=== PATIENT | female | born 1950 | race Caucasian/White ===

== ENCOUNTER 2022-08-30 11:42 | Outpatient (CLI) | payer OTHER, SELFPAY ==
--- NOTE | 2022-08-30 11:57 | MM_ITS ---
WS: [id number] Bilateral screening 3D tomosynthesis digital mammogram, 08/30/2022 Clinical Data: SCREENING Comparison: 05/10/2018, 06/19/2016, 05/19/2012, 08/01/2010, 02/17/2007, 02/25/2005. Findings: The breast parenchymal pattern shows heterogeneous tissue. No spiculated masses or clustered calcific ations are seen. There are no secondary signs of carcinoma. There are lymph nodes in both axilla. Imp ression: 1. Negative bilateral mammogram unchanged. 2. Recommend annual screening mammograms. MM/[place] [id number] BIRADS: 1-Negative FOLLOW UP: 1 Year Follow-up The CAD cylinder checker was used.
== END 2022-08-30 11:43 | disposition home or self-care (01) ==
LOC: RAD 11:49
PROVIDERS: PCP Nurse Practitioner Family; Visit Provider Nurse Practitioner Family
DX: Z12.31 Encounter for screening mammogram for malignant neoplasm of breast (principal)
CPT/HCPCS: 77063; 77067

== ENCOUNTER 2023-08-01 01:47 | Emergency (ER) | payer OTHER, SELFPAY ==
[2023-08-01] VITALS (8 sets, daily range): BP systolic 99–130; BP diastolic 56–71; PULSE 54–78; RESP 15–28; O2SAT 93–95; BMI 25.8
--- NOTE | 2023-08-01 01:55 | ECG_ITS ---
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 Measurements Intervals [place] Rate: 57 P: 0 CT: 0 QRS: 50 QRSD: 78 T: 35 QT: 413 QTc: 404 Interpretive Statements ATRIAL FIBRILLATION WITH SLOW VENTRICULAR RESPONSE SEPTAL MYOCARDIAL INFARCTION , OF INDETERMINATE AGE [40+ ms Q WAVE IN V1/V2] No previous ECG available for comparison Electronically Signed On 08-01-2023 16:59:16 CDT by Berna Phelps M.D. [id number]
--- NOTE | 2023-08-01 02:05 | XRR_ITS ---
PROCEDURE INFORMATION: Exam: XR Chest Exam date and time: 08/01/2023 2:30 AM Age: 73 years old Clinical indication: Other: Afib; Additional info: Cardiac arrthymia TECHNIQUE: Imaging protocol: Radiologic exam of the chest. Views: 1 view. COMPARISON: No relevant prior studies available. FINDINGS: Lungs: Unremarkable. No consolidation. Pleural spaces: Unremarkable. No pleural effusion. No pneumothorax. Heart/Mediastinum: Unremarkable. No cardiomegaly. Bones/joints: Unremarkable. XR/XR chest 1V portable [id number] IMPRESSION: No acute findings.
[2023-08-01 02:28] LABS: Basophils % 0.3 %; Eosinophils # 0.1 10^3/uL (0.0-0.8); Eosinophils % 1.2 %; Hematocrit 41.9 % (36-47); Lymphocytes # 1.5 10^3/uL (0.8-4.8); Lymphocytes % 24.3 %; Mean Corpuscular HGB Conc 33.7 g/dL (30-55); Mean Corpuscular Hemoglobin 32.8 pg (27-33); Mean Corpuscular Volume 97.4 fl (85-98); Mean Platelet Volume 10.1 fL (7.4-10.4); Monocytes # 0.3 10^3/uL (0.2-0.9); Monocytes % 5.4 %; Neutrophils # 4.09 10^3/uL (1.8-7.7); Neutrophils % 68.5 %; Nucleated Red Blood Cells % 0 %; Platelet Count 155 10^3/cmm (157-399); Red Cell Distribution Width 11.6 % (12.1-15.1); White Blood Count 5.97 10^3/uL (3.29-11.43)
[2023-08-01 02:41] LABS: INR 0.94 (0.8-1.2)
[2023-08-01 02:53] LABS: Troponin(5th) Baseline 11 ng/L (0-10)
[2023-08-01 02:58] LABS: Alanine Aminotransferase 22 U/L (0-33); Alkaline Phosphatase 80 U/L (35-105); Blood Urea Nitrogen 21 mg/dL (8-23); Calcium 8.3 mg/dL (8.5-10.5); Carbon Dioxide 21 mmol/L (22-29); Chloride 107 mmol/L (98-107); Creatinine Clr Calc Pharmacy 64.8343; Globulin 2.6 g/dL (1.3-4.6); Glucose 203 mg/dL (65-115); Osmolality Calculated 299 mOsm/kg (285-295); Sodium 140 mmol/L (136-145); Total Bilirubin 0.3 mg/dL (0.15-1.2); Total Protein 6.6 g/dL (6.6-8.7)
[2023-08-01 02:59] LABS: Anion Gap 15.7 (5-19); Aspartate Amino Transferase 21 U/L (0-32); Potassium 3.7 mmol/L (3.5-5.1)
[2023-08-01 03:00] LABS: NT Pro B Type Natriuretic Pept 252 pg/mL (0-125)
[2023-08-01 03:25] LABS: Add Urine Microscopic? NO; Charge for UA Resulting for Rev
[2023-08-01 03:27] LABS: Bilirubin Urine Neg (Negative); Blood Urine Neg (Negative); Glucose Urine UA Norm (Normal); Ketones Urine 1+ (Negative); Leukocyte Esterase Urine Negative (Negative); Nitrate Urine Negative (Negative); Protein Urine Neg (Negative); Specific Gravity, Urine 1.015 (1.005-1.030); Urine Appearance Clear (CLEAR); Urine Color Light yellow (Yellow); Urobilinogen Urine Neg (Negative); pH Urine 5 (5-7)
--- NOTE | 2023-08-01 04:01 | ECG_ITS ---
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 Measurements Intervals [place] Rate: 64 P: 0 MI: 0 QRS: 10 QRSD: 77 T: 3 QT: 421 QTc: 437 Interpretive Statements ATRIAL FIBRILLATION SEPTAL MYOCARDIAL INFARCTION , OF INDETERMINATE AGE [40+ ms Q WAVE IN V1/V2] No previous ECG available for comparison Electronically Signed On 08-01-2023 17:01:56 CDT by Berna Phelps M.D. [id number]
--- NOTE | 2023-08-01 04:32 | ED_ITS ---
Documented by User: Rafa Sorensen MD 08/01/23 04:40 HPI - Arrhythmia/Palpitations 2 General: Chief Complaint: Arrhythmia/Palpitations Stated Complaint: Afib Time Seen by Provider: 08/01/23 02:05 History of Present Illness: 73-year-old female presents emergency de partment via EMS personnel with complaints of feeling like her heart was racing which woke her from sleep. She felt like she could not catch her breath at that time and states that she attempted to get out of the bed and felt like she was excessively weak. She states she became concerned and called the ambulance. She states that she does not have a history of atrial fibrillation but was told by the paramedics that her cardiac rhythm was in atrial fibrillation and was going very fast above 145. Patient states she does have a history of mitral valve prolapse. She denies fevers chills or night sweats. She denies dizziness or vomiting. She does endorse nausea at the time of her chest pressure. She stated her chest pressure was a 3 out of 10 and seem to worsen when she attempted to exert herself and get out of bed. EMS personnel initially gave the patient 18 mg of Cardizem which decreased her heart rate into the 60s from 145 and significantly lowered her blood pressure to 73/49. EMS personnel then provided her a liter of normal saline and 4 mg of Zofran and she was placed on 2 L nasal cannula supplemental oxygen for supportive care. Associated symptoms: Reports nausea Review of Systems 2 General: Reports: 10 or more systems reviewed and unremarkable except in HPI and below Card: Reports: chest pain, palpitations and irregular heart rhythm Resp: Reports: dyspnea GI: Reports: nausea Physical Exam 2 Narrative: EXAM NARRATIVE: Constitutional: the patient appears well nourished and of normal development. Vital signs as documented. No acute distress at present. Alert and oriented-to person, place, time and situation. Head, eyes, ears, nose, mouth, throat: Normocephalic, atraumatic. Pupils-equal, round, reactive to light. No scleral icterus. Normal-appearing external ears. Normal appearing nasal turbinates, no drainage. No obvious oral lesions, posterior oropharynx without erythema or exudates. Neck: Supple, trachea is midline, no lymphadenopathy, no jugular venous distension, thyromegaly, or carotid bruits. Carotid upstrokes are brisk bilaterally. Lungs: clear to auscultation to all lung jackson. Symmetrical rise and fall of chest, no obvious signs of increased work of breathing at present. Cardiac: Irregularly irregular cardiac rhythm consistent with atrial fibrillation., positive S1, S2. No murmurs, rubs or gallops that I can appreciate Abdomen: Soft, non-tender to palpation, normal active bowel sounds to all quadrants. No palpable masses, no organomegaly and abdominal bruits. Extremities: 2+ pulses in the upper extremities that are equal bilaterally, 2+ pulses in the lower extremities that are equal bilaterally. Non-edematous. Moves all extremities well, sensation to all extremities are noted. Skin: Warm, dry, intact. Course 2 Vital Signs: Vital signs: Vital Signs Pulse Rate 60 08/01/23 05:17 Respiratory Rate 15 08/01/23 03:39 Blood Pressure 130/66 08/01/23 05:17 Pulse Oximetry 93 08/01/23 05:17 Oxygen Delivery Me thod Nasal Cannula 08/01/23 04:13 Oxygen Flow Rate 2 08/01/23 01:48 MDM - Arrhythmia/Palpitations Medical Decision Making Physical exam completed and documented, I will obtain serial cardiac enzymes, serial twelve-lead EKGs, chest x-ray, CBC, CMP, urinalysis, B-type natriuretic peptide, PT/PTT/INR, and a chest x-ray. I have reviewed previous and pertinent medical records for assist in obtaining beneficial medical information to improved the care and treatment of the patient. I have discussed the patient's case with the on-coming physician <Dr. Jose> and they have assumed care of the patient. We have discussed the current lab/radiographic results that have been resulted and the pending tests. Medical Records I reviewed the patient's medical records. Lab Data I reviewed the patient's lab results. 08/01/23 02:19 08/01/23 02:19 Radiology Impressions Chest X-Ray 08/01/23 02:05 IMPRESSION: No acute findings. Laboratory Results WBC 5.97 10^3/uL (3.29-11.43) 08/01/23 02:19 RBC 4.30 10^6/uL (3.85-5.65) 08/01/23 02:19 Hgb 14.10 g/dL (11.27-16.99) 08/01/23 02:19 Hct 41.9 % (36-47) 08/01/23 02:19 MCV 97.4 fl (85-98) 08/01/23 02:19 MCH 32.8 pg (27-33) 08/01/23 02:19 MCHC 33.7 g/dL (30-55) 08/01/23 02:19 RDW 11.6 % (12.1-15.1) L 08/01/23 02:19 Plt Count 155 10^3/cmm (157-399) L 08/01/23 02:19 MPV 10.1 fL (7.4-10.4) 08/01/23 02:19 Neut % (Auto) 68.5 % 08/01/23 02:19 Lymph % (Auto) 24.3 % 08/01/23 02:19 [place] % (Auto) 5.4 % 08/01/23 02:19 Eos % (Auto) 1.2 % 08/01/23 02:19 Baso % (Auto) 0.3 % 08/01/23 02:19 Neut # (Auto) 4.09 10^3/uL (1.8-7.7) 08/01/23 02:19 Lymph # (Auto) 1.5 10^3/uL (0.8-4.8) 08/01/23 02:19 [place] # (Auto) 0.3 10^3/uL (0.2-0.9) 08/01/23 02:19 Eos # (Auto) 0.1 10^3/uL (0.0-0.8) 08/01/23 02:19 Baso # (Auto) 0.0 10^3/uL (0.0-0.1) 08/01/23 02:19 Nucleated RBC % (auto) 0 % 08/01/23 02:19 Nucleated RBCs # 0.0 /100WBC 08/01/23 02:19 PT 12.90 SECONDS (12.1-14.9) 08/01/23 02:19 INR 0.94 (0.8-1.2) 08/01/23 02:19 Sodium 140 mmol/L (136-145) 08/01/23 02:19 Potassium 3.7 mmol/L (3.5-5.1) 08/01/23 02:19 Chloride 107 mmol/L (98-107) 08/01/23 02:19 Carbon Dioxide 21 mmol/L (22-29) L 08/01/23 02:19 Anion Gap 15.7 (5-19) 08/01/23 02:19 BUN 21 mg/dL (8-23) 08/01/23 02:19 Creatinine 0.5 mg/dL (0.5-0.9) 08/01/23 02:19 GFR Calculation Not Reportable 08/01/23 02:19 Glucose 203 mg/dL (65-115) H 08/01/23 02:19 Calculated Osmolality 299 mOsm/kg (285-295) H 08/01/23 02:19 Calcium 8.3 mg/dL (8.5-10.5) L 08/01/23 02:19 Total Bilirubin 0.3 mg/dL (0.15-1.2) 08/01/23 02:19 AST 21 U/L (0-32) 08/01/23 02:19 ALT 22 U/L (0-33) 08/01/23 02:19 Alkaline Phosphatase 80 U/L (35-105) 08/01/23 02:19 Troponin T Baseline 11 ng/L (0-10) H 08/01/23 02:19 Troponin T 120 Minute 10.52 ng/L (0-10) H 08/01/23 04:15 Delta Troponin T -0.48 ABS# (0-10) L 08/01/23 04:15 NT-Pro-B Natriuret Pep 252 pg/mL (0-125) H 08/01/23 02:19 Total Protein 6.6 g/dL (6.6-8.7) 08/01/23 02:19 Albumin 4.0 g/dL (3.5-5.2) 08/01/23 02:19 Globulin 2.6 g/dL (1.3-4.6) 08/01/23 02:19 Urine Color Light yellow (Yellow) 08/01/23 02:27 Urine Appearance Clear (CLEAR) 08/01/23 02:27 Urine pH 5 (5-7) 08/01/23 02:27 Ur Specific [place] 1.015 (1.005-1.030) 08/01/23 02:27 Urine Protein Neg (Negative) 08/01/23 02:27 Urine Glucose (UA) Norm (Normal) 08/01/23 02:27 Urine Ketones 1+ (Negative) H 08/01/23 02:27 Urine Blood Neg (Negative) 08/01/23 02:27 Urine Nitrate Negative (Negative) 08/01/23 02:27 Urine Bilirubin Neg (Negative) 08/01/23 02:27 Urine Urobilinogen Neg mg/dL (Negative) 08/01/23 02:27 Ur Leukocyte Esterase Negative (Negative) 08/01/23 02:27 All radiology interpretation(s) finalized by discharge EKG Data EKG 1: Interpretation: Twelve-lead EKG obtained at 0 155 and reviewed at 0 155 demonstrates atrial fibrillation with a ventricular rate of 57 bpm, QRS duration 78, QT 413, QTc 4 7, there is no ST elevation or depression to demonstrate acute ischemia or infarction at present. Other EKG comments: Chest X-Ray 08/01/23 02:05 IMPRESSION: No acute findings. EKG 2: Interpretation: Twelve-lead EKG obtained at 0401 and reviewed at 0 437 demonstrates atrial fibrillation with a ventricular rate of 64 bpm, QRS duration 77, QT 421, QTc 431, there does appear to be approximately [address] depression in leads V4, V5. Other EKG comments: Chest X-Ray 08/01/23 02:05 IMPRESSION: No acute findings. Discharge Plan Discharge Patient Disposition: Home Clinical Impression: Atrial fibrillation with rapid ventricular response, Palpitations Condition: Stable Prescriptions: New Eliquis DVT-PE Treat 30D Start 5 mg (74 tabs) tablets,dose pack See Rx Instructions .ROUTE .COMPLEX Qty: 74 0RF Rx Instructions: orally per package directions Discharge Orders: Discharge ED (Routine); Ordered 08/01/23 Ordered By: Robin Jose Referrals: Lucita Lemons [Primary Care Provider] - 1 week Patient Instructions: Atrial Fibrillation Activity Restrictions/Additional Instructions: He had been diagnosed with new onset atrial fibrillation. This requires an anticoagulant. He will be started on Eliquis and referred to cardiology for further evaluation testing. If this worsens such as your heart rate increases or your blood pressure decreases or you have palpitations please feel free to return to the ER. Coding Level of Care Code ED Construction Rigger for Chg Fwd Documented by User: Robin Jose DO 08/01/23 05:34 HPI - Arrhythmia/Palpitations 2 General: Chief Complaint: Arrhythmia/Palpitations Stated Complaint: Afib Time Seen by Provider: 08/01/23 02:05 Course 2 Vital Signs: Vital signs: Vital Signs Pulse Rate 60 08/01/23 05:17 Respiratory Rate 15 08/01/23 03:39 Blood Pressure 130/66 08/01/23 05:17 Pulse Oximetry 93 08/01/23 05:17 Oxygen Delivery Me thod Nasal Cannula 08/01/23 04:13 Oxygen Flow Rate 2 08/01/23 01:48 MDM - Arrhythmia/Palpitations Medical Decision Making Physical exam completed and documented, I will obtain serial cardiac enzymes, serial twelve-lead EKGs, chest x-ray, CBC, CMP, urinalysis, B-type natriuretic peptide, PT/PTT/INR, and a chest x-ray. I have reviewed previous and pertinent medical records for assist in obtaining beneficial medical information to improved the care and treatment of the patient. I have discussed the patient's case with the on-coming physician <Dr. Jose> and they have assumed care of the patient. We have discussed the current lab/radiographic results that have been resulted and the pending tests. Lab tests were reviewed troponins were benign, patient will be placed on Eliquis, consultation with cardiology will be arranged, patient be discharged home. Lab Data 08/01/23 02:19 08/01/23 02:19 Radiology Impressions Chest X-Ray 08/01/23 02:05 IMPRESSION: No acute findings. Laboratory Results WBC 5.97 10^3/uL (3.29-11.43) 08/01/23 02:19 RBC 4.30 10^6/uL (3.85-5.65) 08/01/23 02:19 Hgb 14.10 g/dL (11.27-16.99) 08/01/23 02:19 Hct 41.9 % (36-47) 08/01/23 02:19 MCV 97.4 fl (85-98) 08/01/23 02:19 MCH 32.8 pg (27-33) 08/01/23 02:19 MCHC 33.7 g/dL (30-55) 08/01/23 02:19 RDW 11.6 % (12.1-15.1) L 08/01/23 02:19 Plt Count 155 10^3/cmm (157-399) L 08/01/23 02:19 MPV 10.1 fL (7.4-10.4) 08/01/23 02:19 Neut % (Auto) 68.5 % 08/01/23 02:19 Lymph % (Auto) 24.3 % 08/01/23 02:19 [place] % (Auto) 5.4 % 08/01/23 02:19 Eos % (Auto) 1.2 % 08/01/23 02:19 Baso % (Auto) 0.3 % 08/01/23 02:19 Neut # (Auto) 4.09 10^3/uL (1.8-7.7) 08/01/23 02:19 Lymph # (Auto) 1.5 10^3/uL (0.8-4.8) 08/01/23 02:19 [place] # (Auto) 0.3 10^3/uL (0.2-0.9) 08/01/23 02:19 Eos # (Auto) 0.1 10^3/uL (0.0-0.8) 08/01/23 02:19 Baso # (Auto) 0.0 10^3/uL (0.0-0.1) 08/01/23 02:19 Nucleated RBC % (auto) 0 % 08/01/23 02:19 Nucleated RBCs # 0.0 /100WBC 08/01/23 02:19 PT 12.90 SECONDS (12.1-14.9) 08/01/23 02:19 INR 0.94 (0.8-1.2) 08/01/23 02:19 Sodium 140 mmol/L (136-145) 08/01/23 02:19 Potassium 3.7 mmol/L (3.5-5.1) 08/01/23 02:19 Chloride 107 mmol/L (98-107) 08/01/23 02:19 Carbon Dioxide 21 mmol/L (22-29) L 08/01/23 02:19 Anion Gap 15.7 (5-19) 08/01/23 02:19 BUN 21 mg/dL (8-23) 08/01/23 02:19 Creatinine 0.5 mg/dL (0.5-0.9) 08/01/23 02:19 GFR Calculation Not Reportable 08/01/23 02:19 Glucose 203 mg/dL (65-115) H 08/01/23 02:19 Calculated Osmolality 299 mOsm/kg (285-295) H 08/01/23 02:19 Calcium 8.3 mg/dL (8.5-10.5) L 08/01/23 02:19 Total Bilirubin 0.3 mg/dL (0.15-1.2) 08/01/23 02:19 AST 21 U/L (0-32) 08/01/23 02:19 ALT 22 U/L (0-33) 08/01/23 02:19 Alkaline Phosphatase 80 U/L (35-105) 08/01/23 02:19 Troponin T Baseline 11 ng/L (0-10) H 08/01/23 02:19 Troponin T 120 Minute 10.52 ng/L (0-10) H 08/01/23 04:15 Delta Troponin T -0.48 ABS# (0-10) L 08/01/23 04:15 NT-Pro-B Natriuret Pep 252 pg/mL (0-125) H 08/01/23 02:19 Total Protein 6.6 g/dL (6.6-8.7) 08/01/23 02:19 Albumin 4.0 g/dL (3.5-5.2) 08/01/23 02:19 Globulin 2.6 g/dL (1.3-4.6) 08/01/23 02:19 Urine Color Light yellow (Yellow) 08/01/23 02:27 Urine Appearance Clear (CLEAR) 08/01/23 02:27 Urine pH 5 (5-7) 08/01/23 02:27 Ur Specific [place] 1.015 (1.005-1.030) 08/01/23 02:27 Urine Protein Neg (Negative) 08/01/23 02:27 Urine Glucose (UA) Norm (Normal) 08/01/23 02:27 Urine Ketones 1+ (Negative) H 08/01/23 02:27 Urine Blood Neg (Negative) 08/01/23 02:27 Urine Nitrate Negative (Negative) 08/01/23 02:27 Urine Bilirubin Neg (Negative) 08/01/23 02:27 Urine Urobilinogen Neg mg/dL (Negative) 08/01/23 02:27 Ur Leukocyte Esterase Negative (Negative) 08/01/23 02:27 EKG Data EKG 1: Other EKG comments: Chest X-Ray 08/01/23 02:05 IMPRESSION: No acute findings. EKG 2: Other EKG comments: Chest X-Ray 08/01/23 02:05 IMPRESSION: No acute findings. Discharge Plan Discharge Patient Disposition: Home Clinical Impression: Atrial fibrillation with rapid ventricular response, Palpitations Condition: Stable Prescriptions: New Eliquis DVT-PE Treat 30D Start 5 mg (74 tabs) tablets,dose pack See Rx Instructions .ROUTE .COMPLEX Qty: 74 0RF Rx Instructions: orally per package directions Discharge Orders: Discharge ED (Routine); Ordered 08/01/23 Ordered By: Robin Jose Referrals: Lucita Lemons [Primary Care Provider] - 1 week Patient Instructions: Atrial Fibrillation Activity Restrictions/Additional Instructions: He had been diagnosed with new onset atrial fibrillation. This requires an anticoagulant. He will be started on Eliquis and referred to cardiology for further evaluation testing. If this worsens such as your heart rate increases or your blood pressure decreases or you have palpitations please feel free to return to the ER. Coding Level of Care Code ED Construction Rigger for Erica Robert
[2023-08-01 04:38] LABS: Troponin 5 2HR 10.52 ng/L (0-10)
[2023-08-01 04:40] LABS: Troponin 5 2HR Delta -0.48 ABS# (0-10)
--- NOTE | 2023-08-04 08:39 | DCPLANNER ---
Message sent to cardiology for follow up
== END 2023-08-01 05:35 | disposition home or self-care (01) ==
PROVIDERS: Emergency Provider Internal Medicine; PCP Nurse Practitioner Family
DX: I48.20 Chronic atrial fibrillation, unspecified (principal); R00.2 Palpitations
CPT/HCPCS: 36415; 71045; 80053; 81003; 83880; 84484; 85025; 85610; 93005; 99285

== ENCOUNTER 2023-11-27 14:07 | Outpatient (CLI) | payer OTHER, SELFPAY ==
--- NOTE | 2023-11-27 14:15 | CT_ITS ---
WS: [id number] CT chest wo con [id number] HISTORY: multiples lung nodules TECHNIQUE: Axial imaging performed through the thorax. Coronal and sagittal reformats are submitted. All CT scans at [facility] use at least one of these dose optimization techniques: automated exposure control; mA and/or kV adjustment per patient size (includes targeted exams where dose is mat ched to clinical indication); or iterative reconstruction. CONTRAST: None DLP: 255.82 mGy.cm COMPARISON: Chest radiograph 08/01/2023 Lungs and central airway: Mild pulmonary hyperexpansion. There is a single cyst or cavitary nodule in the superior segment RIGHT lower lobe. Entire cavitary lesion measures 14 x 13 mm. There is asymmetr ic wall thickening and slight adjacent groundglass attenuation. The wall thickening is along the supe rior and lateral portion of the nodule measuring 3 x 12 mm. There are a few additional scattered very tiny micronodules. No mass. Pleura: Normal. No pleural effusion. Heart and pericardium: Moderate cardiomegaly. Mediastinum and rick: The lack of IV contrast limits evaluation of lymphadenopathy in the chest. Ther e are numerous anterior mediastinal lymph nodes, AP and paratracheal lymph nodes. Some of these conta in calcifications suggesting they're probably benign. The largest lymph nodes measure up to 12 mm. Perry spect subcarinal lymph node. Vessels: Mildly ectatic aorta. Nonaneurysmal aorta. Pulmonary artery mildly prominent to 3.2 cm. Chest wall and lower neck: No soft tissue masses. Upper abdomen: Subtle low-attenuation, 9 mm lesion in the RIGHT lobe of the liver. There are a few sc attered granulomatous. Normal size spleen. Osseous structures: L1 hemangioma. CT/CT chest wo con [id number] IMPRESSION: 1. Cavitary lesion with asymmetric wall thickening superior segment RIGHT lowe r lobe. Cavitary lesion in its entirety measures 14 x 13 mm. The focal asymmetr ic wall thickening measures 3 x 12 mm. Recommend 3-month chest CT follow-up wit h IV contrast. 2. Enlarged, indeterminate mediastinal and hilar lymph nodes. Some of these ly mph nodes contain calcifications suggesting benign from prior granulomatous dis ease. These would be better evaluated on the enhanced chest CT. PET/CT may be o f benefit to evaluate for malignancy. Recommend 3-month chest CT follow-up with IV contrast. 3. Focal 9 mm lesion in the RIGHT lobe of the liver cannot be further evaluate d by noncontrast CT. Consider follow-up ultrasound of the RIGHT upper quadrant. PET/CT may be of benefit also.
== END 2023-11-27 14:08 | disposition home or self-care (01) ==
LOC: RAD 14:09
PROVIDERS: PCP Nurse Practitioner Family; Visit Provider Internal Medicine Critical Care Medicine
DX: R91.8 Other nonspecific abnormal finding of lung field (principal); R06.09 Other forms of dyspnea; F17.211 Nicotine dependence, cigarettes, in remission; K76.9 Liver disease, unspecified
CPT/HCPCS: 71250

== ENCOUNTER 2025-02-19 08:39 | Emergency (ER) | payer OTHER, SELFPAY ==
--- OUTSIDE RECORDS SUMMARY | 2025-02-19 08:47 | XMS_ITS | Encounter Summary ---
Author Organization [facility] Address [address] 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
--- OUTSIDE RECORDS SUMMARY | 2025-02-19 08:47 | XMS_ITS | Encounter Summary ---
Author Organization [facility] Address [address] [place] [address] Care Team Providers Care Automotive Refinisher Name Role Phone Robert Buitrago MD Primary Care Provider [phone] Encounter Details Date Type Department Care Team (Latest Contact Info) Description 02/27/2007 Outpatient Historical [facility] [address] [id number] Georgia Betts MD NO ADDRESS ON FILE Other Screening Mammogram (Primary Dx) Social History Tobacco Use Types Packs/Day Years Used Date Smoking Tobacco: Never Assessed Comments Unknown Sex and Gender Information Value Date Recorded Sex Assigned at Not on file 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 Gender Identity Not on file Sexual Orientation Not on file documented as of this encounter Plan of Treatment Not on file documented as of this encounter Visit Diagnoses Diagnosis Other screening mammogram- Primary documented in this encounter Additional Health Concerns Infection Onset Date Last Indicated Resolved Time COVID-19 03/28/2020 03/28/2020 04/17/2020 8:09 PM COMMODITY LOAN CLERK documented as of this encounter Care Teams Automotive Refinisher Relationship Specialty Start Date End Date Robert Buitrago MD [address] [place] [address] PCP - General Family Practice 03/14/20 documented as of this encounter
--- OUTSIDE RECORDS SUMMARY | 2025-02-19 08:47 | XMS_ITS | Clinical Summary ---
Author Organization [facility] Address [address] [place] [address] Care Team Providers Care Seed Cleaning Machine Operator Name Role Phone Robert Buitrago MD Primary Care Provider [phone] [phone] Allergies Active Allergy Reactions Criticality Noted Date Comments Apixaban Rash Low 08/22/2023 Atorvastatin Muscle Pain Low 01/01/2022 Fexofenadine Anaphylaxis High 10/26/2008 Gadolinium-Containing Contrast Media Rash Low 08/20/2017 Gluten Diarrhea,Nausea and Vomiting Low 11/17/2009 Iodinated Contrast Media Hives High 02/27/2024 Predisol 50 Nausea and Vomiting Low 09/23/2018 Simvastatin Muscle Pain Low 01/01/2022 Sulfa (Sulfonamide Antibiotics) Nausea and Vomiting Low 01/21/2008 Medications vits A,C,E/zinc/wally er (VISION-AMOS PRESERVE ORAL) Take by mouth. 09/23/2018 Active dabigatran etexilate (PRADAXA) 150 mg Capsule Take 150 mg by mouth 2 times daily. 09/29/2023 Active dilTIAZem (diltiazem sr) 240 mg Extended Release capsule Take 1 Capsule (240 mg) by mouth daily. 30 Capsule 11 07/05/2024 Active sertraline (ZOLOFT) 25 mg tabletIndicatio ns:Recurrent major depressive disorder, in partial remission Take 1 Tablet (25 mg) by mouth daily. 100 Tablet 3 12/24/2024 Active MAGNESIUM CITRATE ORAL Take 100 mg by mouth daily at bedtime. Active ezetimibe (ZETIA) 10 mg tabletIndicatio ns:Statin myopathy,Famili al hypercholestero lemia,Gluten intolerance,Fat ty liver disease, nonalcoholic,Ov erweight Take 1 tablet by mouth once daily 90 Tablet 2 01/05/2025 Active Active Problems Problem Noted Date Diagnosed Date S/P right hemicolectomy 12/26/2023 Allergic reaction to alpha-gal 12/26/2023 Paroxysmal atrial fibrillation 08/04/2023 Statin myopathy 01/01/2022 History of colon cancer 08/28/2021 Fatty liver disease, nonalcoholic 08/28/2021 Acute cystitis with hematuria 08/28/2021 Recurrent major depressive disorder, in partial remission 04/25/2020 Gluten intolerance 11/01/2014 Personal history of colonic polyps 01/07/2013 Mechanical complication due to breast prosthesis 09/18/2010 Hyperlipidemia 01/21/2008 Encounters Date Type Department Care Team Description 02/14/2025 Results Follow[facility] [address] [facility] [address] [place] [address] Irene Zheng MD COMPREHENSIVE METABOLIC PANEL, LIPID PANEL, QUEST TEST IN QUESTION (ACTION NEEDED) (NO MY CHART) 02/09/2025 8:00 AM CDT Procedure visit [facility] Medicine [place] [address] [facility] [address] [place] [address] Recurrent major depressive disorder, in partial remission; Paroxysmal atrial fibrillation (CMS/HCC); Statin myopathy; History of colon cancer; Familial hypercholesterolemia; Gluten intolerance; Fatty liver disease, nonalcoholic; Overweight; Chronic atrial fibrillation (CMS/HCC); Elevated liver enzymes 01/05/2025 Refill [facility] [address] [facility] [address] [place] [address] Irene Zheng MD Statin myopathy; Familial hypercholesterolemia; Gluten intolerance; Fatty liver disease, nonalcoholic; Overweight 01/03/2025 10:00 AM CDT Office Visit [place] [address] [facility] [address] [place] [address] Jennifer Quinones DO Statin myopathy (Primary Dx); Paroxysmal atrial fibrillation (CMS/HCC); Mixed hyperlipidemia 01/03/[address] [place] [address] Jennifer Quinones DO appointment needed 12/24/2024 9:00 AM CDT Office Visit [facility] Medicine [place] [address] [facility] [address] [place] [address] Robert Buitrago MD Wellness examination (Primary Dx); Recurrent major depressive disorder, in partial remission; Paroxysmal atrial fibrillation (CMS/HCC); Statin myopathy; History of colon cancer from Last 3 Months Immunizations Immunization Administration Dates Next Due (Action)(12 YR UP) COVID-19 VACCINE - EMERGENCY USE AUTHORIZATION, MRNA, [id number](PF) 30 MCG/0.3 ML IM SUSP 07/13/2020,06/20/2020 Dt Dtp Dtap Vaccine 10/25/1999 Family History Medical History Relation Name Comments Heart Disease Brother aortic dissect ion Lung Cancer Brother Stroke Brother Breast Cancer Maternal Grandmother Diabetes Mother Heart Disease Mother Hypertension Mother Colon Cancer Other SELF Heart Disease Son aortic dissect ion, CAD Relation Name Status Comments Brother Maternal Grandmother Mother Other SELF Alive Son Alive Social History Tobacco Use Types Packs/Day Years Used Date Smoking Tobacco: Former Cigarettes 1 35 0 12/10/1972 - 12/11/2007 Passive Smoke Exposure: Past Smokeless Tobacco: Never Tobacco Cessation:Counseling Given: No Comments:Quit smoking: quit 2 years ago Alcohol Use Standard Drinks/Week Comments No 0 (1 standard drink = 0.6 oz pur e alcohol) Feeling Safe Answer Date Recorded Are you in a relationship wi th someone who hurts you emotionally and/or physically? No 09/16/2022 Comments No Sex and Gender Information Value Date Recorded Sex Assigned at Not on file Legal Sex Female 1:40 PM PHOTOLITHOGRAPHIC STRIPPER Gender Identity Not on file Sexual Orientation Not on file Last Filed Vital Signs Vital Sign Reading Time Taken Comments Blood Pressure 108/68 01/03/2025 9:56 AM CDT Pulse 64 01/03/2025 9:56 AM CDT Temperature 36.9 C (98.4 F) 12/24/2024 9:27 AM CDT Respiratory Rate 18 12/24/2024 9:27 AM CDT Oxygen Saturation 99% 12/24/2024 9:27 AM CDT Inhaled Oxygen Concentration - - Weight 73.8 kg (162 lb 9.6 oz) 01/03/2025 9:56 A M CDT Height 167.6 cm (5' 6 ) 01/03/2025 9:56 AM CDT Body Mass Index 26.24 01/03/2025 9:56 AM CDT Plan of Treatment Upcoming Encounters Date Type Department Care Team (Late st Contact Info) Description 05/12/2025 9:20 AM PHOTOLITHOGRAPHIC STRIPPER Video Visit [facility] [address] [address] Irene Zheng MD [address] [address] 06/24/2025 9:20 AM CDT Office Visit [facility] Medicine [place] [address] [facility] [address] [place] [address] Gisele Mullen NP [address] [place] [address] 01/13/2026 10:20 AM CDT Office Visit [facility] [address] [facility] [address] [place] [address] Trina Winter, [facility] [address] [facility] [address] [place] [address] Health Maintenance Due Date Last Done Comments PNEUMOCOCCAL VACCINE 50+ YEA RS (1 of 2 - PCV) 1970 RSV VACCINE (60+ or ) (1 - Risk 50-74 years 1-dose series) 2001 ZOSTER VACCINE (1 of 2) 2001 DTAP/TDAP/TD VACCINES (2 - Tdap) 10/24/2009 10/25/19 00 OSTEOPOROSIS SCREENING 06/19/2021 06/19/2016, 2016 INFLUENZA VACCINE (#1) 2024 2, 08/28/2021, 03/14/2020 COVID-19 Vaccine (4 - 5-2 6 season) 2024 04/12/2021, 07/13/2020, 06/20/2020 BREAST CANCER SCREENING 01/12/2025 01/13/20 24, 08/30/2022, 07/08/2018, Additional history exists COLORECTAL SCREENING 09/17/2027 09/16/2022, 07/27/2018, 07/27/2018, Additional history exists Medical Devices Explanted Type Area Delivery Driver/Supervisor Device Identifier Shelf Expiration Date Model / Serial / Lot . Explanted:Qty: 1 on 12/14/2010 Mammary Left: Breast Description:[employer] [place] Gel Implant. Ruptured. Implanted by Dr. Puga He has been retired many years. Implant thrown away as it does not qualify under the guidelines per Courtney Jarvis . Explanted:Qty: 1 on 12/14/2010 Right: Breast Description:Right Capsule of Brest Post Augmentation. Not Ruptured. Implanted by Dr. Puga several years ago Implant thrown away per Courtney Jarvis as it is several years old and does qualify under the guidelines set forth. Procedures Procedure Name Priority Date/Time Associated Diagnosis Comments QUEST TEST IN QUESTION (ACTION NEEDED) (NO MY CHART) Routine 02/09/2025 8:09 AM CDT LIPID PANEL Routine 02/09/2025 8:09 AM CDT Statin myopathy Familial hypercholesterolemia Gluten intolerance Fatty liver disease, nonalcoholic Overweight Chronic atrial fibrillation (CMS/HCC) Elevated liver enzymes COMPREHENSIVE METABOLIC PANEL Routine 02/09/2025 8:09 AM CDT Statin myopathy Familial hypercholesterolemia Gluten intolerance Fatty liver disease, nonalcoholic Overweight Chronic atrial fibrillation (CMS/HCC) Elevated liver enzymes CBC WITH DIFFERENTIAL Routine 12/24/2024 12:00 AM CDT Recurrent major depressive disorder, in partial remission Paroxysmal atrial fibrillation (CMS/HCC) Statin myopathy History of colon cancer MAMMO 3D DIONNE SCREEN BILAT W OR WO CAD Routine 01/13/2024 1:53 PM CDT Breast cancer screening by mammogram ENDOSCOPY, COLON, DIAGNOSTIC 07/27/2018 12:00 AM CDT XR DEXA BONE DENSITY AXIAL 1 OR MORE SITES Routine 06/19/2016 12:00 AM PHOTOLITHOGRAPHIC STRIPPER Postmenopausal from Last 3 Months or Most Recently Relevant to Health Maintenance Results * QUEST TEST IN QUESTION (ACTION NEEDED) (NO MY CHART) (02/09/2025 8:09 AM CDT) REPORT/SPECIMEN COMMENT [facility] Comment: Whole blood, unspun or partially spun gel barrier tube was received more than 6 hours since collection. A false elevation of K, Phos and LD as well as a false decrease in glucose may occur due to prolonged contact with red cells. Test Performed at: [facility] [id number] [facility] [place] [address] Cara Macias MD 02/09/2025 8:09 AM CDT 02/10/2025 3:10 AM CDT us Irene Zheng MD CHEMISTRY ORDERABLES Final Resul t [facility] [phone] [facility] [address] [facility] [place] [address] * (ABNORMAL) LIPID PANEL (02/09/2025 8:09 AM CDT) CHOLESTEROL 213(H) <200 mg/dL [facility] HDL 37(L) > OR = 50 mg/dL [facility] TRIGLYCERIDE 123 <150 mg/dL [facility] LDL CALCULATED 151(H) mg/dL (calc) [facility] Comment: Reference range: <100 Desirable range <100 mg/dL for primary prevention; <70 mg/dL for patients with CHD or diabetic patients with > or = 2 CHD risk factors. LDL-C is now calculated using the Hayley calculation, which is a validated novel method providing better accuracy than the Friedewald equation in the estimation of LDL-C. Casey PURVIS et al. LORI. 2013;310(19): 1378-0808 (http://education.Admatic.[employer]/faq/CCZ536) CHOL/HDL RATIO 5.8(H) <5.0 (calc) [facility] NON-HDL CHOLESTEROL 176(H) <130 mg/dL (calc) [facility] Comment: For patients with diabetes plus 1 major ASCVD risk factor, treating to a non-HDL-C goal of <100 mg/dL (LDL-C of <70 mg/dL) is considered a therapeutic option. Test Performed at: [facility] [address] [place] [address] Cara Macias MD Blood 02/09/2025 8:09 AM CDT 02/10/2025 3:10 AM CDT us Irene Zheng MD CHEMISTRY ORDERABLES Final Resul t [facility] [phone] [facility] [address] * (ABNORMAL) COMPREHENSIVE METABOLIC PANEL (02/09/2025 8:09 AM CDT) GLUCOSE 59(L) 65 - 99 mg/dL [facility] Comment: Fasting reference interval BUN 18 7 - 25 mg/dL [facility] CREATININE 0.64 0.60 - 1.00 mg/dL [facility] GFR 93 > OR = 60 mL/min/1. 73m2 [facility] BUN/CREAT RATIO SEE NOTE: 6 - 22 (calc) [facility] Comment: Not Reported: BUN and Creatinine are within reference range. SODIUM 138 135 - 146 mmol/L [facility] POTASSIUM 4.6 3.5 - 5.3 mmol/L [facility] CHLORIDE 99 98 - 110 mmol/L [facility] CO2 26 20 - 32 mmol/L [facility] CALCIUM 9.8 8.6 - 10.4 mg/dL [facility] TOTAL PROTEIN 7.6 6.1 - 8.1 g/dL [facility] ALBUMIN 4.5 3.6 - 5.1 g/dL [facility] GLOBULIN 3.1 1.9 - 3.7 g/dL (calc) [facility] ALBUMIN/GLOBULIN RATIO 1.5 1.0 - 2.5 (calc) [facility] BILIRUBIN TOTAL 0.7 0.2 - 1.2 mg/dL [facility] ALKALINE PHOSPHATASE 87 37 - 153 U/L [facility] AST 62(H) 10 - 35 U/L [facility] ALT 65(H) 6 - 29 U/L [facility] Comment: Test Performed at: [facility] [address] [facility] [place] [address] Cara Macias MD Blood 02/09/2025 8:09 AM CDT 02/10/2025 3:10 AM CDT us Irene Zheng MD CHEMISTRY ORDERABLES Final Resul t [facility] [phone] [facility] [address] [place] [address] * (ABNORMAL) CBC WITH DIFFERENTIAL (12/24/2024 12:00 AM CDT) WBC 4.2 3.8 - 10.8 Thousand/u L [facility] RBC 4.68 3.80 - 5.10 Million/uL [facility] HEMOGLOBIN 15.4 11.7 - 15.5 g/dL [facility] HEMATOCRIT 46.5(H) 35.0 - 45.0 % [facility] MCV 99.4 80.0 - 100.0 fL [facility] MCH 32.9 27.0 - 33.0 pg [facility] MCHC 33.1 32.0 - 36.0 g/dL [facility] Comment: For adults, a slight decrease in the calculated MCHC value (in the range of 30 to 32 g/dL) is most likely not clinically significant; however, it should be interpreted with caution in correlation with other red cell parameters and the patient's clinical condition. RDW 11.8 11.0 - 15.0 % [facility] PLATELETS 201 140 - 400 Thousand/u L [facility] MPV 11.6 7.5 - 12.5 fL [facility] NEUTROPHIL ABSOLUTE 2,348 1,500 - 7,800 cells/uL [facility] LYMPHOCYTE ABSOLUTE 1,441 850 - 3,900 cells/uL [facility] MONOCYTE ABSOLUTE 273 200 - 950 cells/uL [facility] EOSINOPHIL ABSOLUTE 109 15 - 500 cells/uL [facility] BASOPHILS ABSOLUTE 29 0 - 200 cells/uL [facility] NEUTROPHIL 55.9 % [facility] LYMPHOCYTES 34.3 % [facility] MONOCYTE 6.5 % [facility] EOSINOPHILS 2.6 % [facility] BASOPHILS 0.7 % [facility] Comment: Test Performed at: [facility] [address] [place] [address] Cara Macias MD Blood 12/24/2024 02/10/2025 3:1 0 AM CDT Robert Buitrago MD HEMATOLOGY ORDERABLES Fin al Result [facility] [phone] [facility] [address] [place] [address] * MAMMO 3D DIONNE SCREEN BILAT W OR WO CAD (01/13/2024 1:53 PM CDT) Anatomical Region Laterality Modality Breast Bilateral Mammography, Dig ital Radiography Impressions 01/23/2024 6:39 AM CDT : No mammographic evidence of malignancy. BI-RADS ASSESSMENT: 1 - Negative RECOMMENDATION: Routine annual screening mammography. Narrative 01/23/2024 6:39 AM CDT EXAM: MAMMO SCRN BILAT 3D DIONNE W OR WO CAD INDICATION: Screening COMPARISON: 08/01/2010 MAMMO SCREEN IMPL BILAT W OR WO CAD BREAST COMPOSITION: The breasts are heterogeneously dense, which may obscure small masses. FINDINGS: RIGHT BREAST: There are no suspicious masses, calcifications, or areas of architectural distortion. LEFT BREAST: There are no suspicious masses, calcifications, or areas of architectural distortion. us Robert Buitrago MD MAMMO ORDERABLES Final Re sult * ENDOSCOPY, COLON, DIAGNOSTIC (07/27/2018 12:00 AM CDT) us Sgf Scanning GI PROCEDURE ORDERABLES Final Re sult * XR DEXA BONE DENSITY AXIAL 1 OR MORE SITES (06/19/2016 12:00 AM PHOTOLITHOGRAPHIC STRIPPER) Anatomical Region Laterality Modality Other Sneha Ellis AIRCRAFT TOOL MAKER DIAGNOSTIC IMAGING ORDERABL ES Final Result from Last 3 Months or Most Recently Relevant to Health [place] [id number] MEDICARE PART A HOSPITAL ONLY Advance Directives For more information, please contact: [phone] * Full Code (Latest Code Status on File) Date Activated Date Inactivated Comments 09/16/2022 10:51 AM 09/16/2022 1:26 PM Care Teams Seed Cleaning Machine Operator Relationship Specialty Start Date End Date Robert Buitrago MD [address] [address] PCP - General Family Practice 03/14/20
--- OUTSIDE RECORDS SUMMARY | 2025-02-19 08:47 | XMS_ITS | Encounter Summary ---
Author Organization [facility] Address [address] [place] [address] Care Team Providers Care Protein Purification Scientist Name Role Phone Robert Buitrago MD Primary Care Provider [phone] Encounter Details Date Type Department Care Team (Late st Contact Info) Description 03/12/[address] [facility] Breast Center [facility] [address] [place] [address] Miriam Osborne MD [facility] [place], [place] [address] Social History Tobacco Use Types Packs/Day Years Used Date Smoking Tobacco: Never Assessed Comments Unknown Sex and Gender Information Value Date Recorded Sex Assigned at Not on file Legal Sex Female 3:10 AM SHRIMPING BOAT CAPTAIN Gender Identity Not on file Sexual Orientation Not on file documented as of this encounter Plan of Treatment Not on file documented as of this encounter Visit Diagnoses Not on filedocumented in this encounter Additional Health Concerns Infection Onset Date Last Indicated Resolved Time COVID-19 03/28/2020 03/28/2020 04/17/2020 8:09 PM SHRIMPING BOAT CAPTAIN documented as of this encounter Care Teams Protein Purification Scientist Relationship Specialty Start Date End Date Robert Buitrago MD [address] [place] [address] PCP - General Family Practice 03/14/20 documented as of this encounter
--- OUTSIDE RECORDS SUMMARY | 2025-02-19 08:47 | XMS_ITS | Encounter Summary ---
Author Organization [facility] Address [address] [place] [address] Care Team Providers Care Wood Carving Lathe Operator Name Role Phone Robert Buitrago MD Primary Care Provider [phone] Encounter Details Date Type Department Care Team (Latest Contact Info) Description 05/07/2004 Outpatient Historical [facility] Medicine[address] [address] Ban Jean MD [address] [place] [address] LUMBAGO (Primary Dx); SPASM OF MUSCLE Social History Tobacco Use Types Packs/Day Years Used Date Smoking Tobacco: Never Assessed Comments Unknown Sex and Gender Information Value Date Recorded Sex Assigned at Not on file Legal Sex Female 3:10 AM REAL ESTATE SPECIALIST Gender Identity Not on file Sexual Orientation Not on file documented as of this encounter Plan of Treatment Not on file documented as of this encounter Visit Diagnoses Diagnosis Lumbago- Primary Spasm of muscle documented in this encounter Additional Health Concerns Infection Onset Date Last Indicated Resolved Time COVID-19 03/28/2020 03/28/2020 04/17/2020 8:09 PM REAL ESTATE SPECIALIST documented as of this encounter Care Teams Wood Carving Lathe Operator Relationship Specialty Start Date End Date Robert Buitrago MD [address] [place] [address] PCP - General Family Practice 03/14/20 documented as of this encounter
--- OUTSIDE RECORDS SUMMARY | 2025-02-19 08:47 | XMS_ITS | Encounter Summary ---
Author Organization [facility] Address [address] [place] [address] Care Team Providers Care Engineering Documentation Specialist Name Role Phone Robert Buitrago MD Primary Care Provider [phone] Encounter Details Date Type Department Care Team (Latest Contact Info) Description 02/19/1999 Outpatient Historical [facility] Medicine[address] [address] Anish Saldaña MD [address] [place] [address] Acute frontal sinusitis (Primary Dx); Acute bronchitis; Tobacco use disorder; Closed fracture of one or more phalanges of foot Social History Tobacco Use Types Packs/Day Years Used Date Smoking Tobacco: Never Assessed Comments Unknown Sex and Gender Information Value Date Recorded Sex Assigned at Not on file Legal Sex Female 3:10 AM MANAGER COMMODITIES Gender Identity Not on file Sexual Orientation Not on file documented as of this encounter Plan of Treatment Not on file documented as of this encounter Visit Diagnoses Diagnosis Acute frontal sinusitis- Primary Acute bronchitis Tobacco use disorder Closed fracture of one or more phalanges of foot documented in this encounter Additional Health Concerns Infection Onset Date Last Indicated Resolved Time COVID-19 03/28/2020 03/28/2020 04/17/2020 8:09 PM MANAGER COMMODITIES documented as of this encounter Care Teams Engineering Documentation Specialist Relationship Specialty Start Date End Date Robert [place] [address] PCP - General Family Practice 03/14/20 documented as of this encounter
--- OUTSIDE RECORDS SUMMARY | 2025-02-19 08:47 | XMS_ITS | Encounter Summary ---
Author Organization [facility] Address [address] [place] [address] Care Team Providers Care Spool Hauler Name Role Phone Robert Buitrago MD Primary Care Provider [phone] Encounter Details Date Type Department Care Team (Latest Contact Info) Description 03/12/2007 Outpatient [facility] Breast Center [facility] [address] [place] [address] Other Sign and Symptom in Breast (Primary Dx) Social History Tobacco Use Types Packs/Day Years Used Date Smoking Tobacco: Never Assessed Comments Unknown Sex and Gender Information Value Date Recorded Sex Assigned at Not on file Legal Sex Female 3:10 AM SCREW MACHINE SETTER Gender Identity Not on file Sexual Orientation Not on file documented as of this encounter Plan of Treatment Not on file documented as of this encounter Visit Diagnoses Diagnosis Other sign and symptom in breast- Primary documented in this encounter Additional Health Concerns Infection Onset Date Last Indicated Resolved Time COVID-19 03/28/2020 03/28/2020 04/17/2020 8:09 PM SCREW MACHINE SETTER documented as of this encounter Care Teams Spool Hauler Relationship Specialty Start Date End Date Robert Buitrago MD [address] [place] [address] PCP - General Family Practice 03/14/20 documented as of this encounter
--- OUTSIDE RECORDS SUMMARY | 2025-02-19 08:47 | XMS_ITS | Encounter Summary ---
Author Organization [facility] Address [address] [place] [address] Care Team Providers Care Price Changer Name Role Phone Robert Buitrago MD Primary Care Provider [phone] Encounter Details Date Type Department Care Team (Latest Contact Info) Description 01/29/2007 Outpatient Historical [facility] Family Medicine[address] [address] Sundar Osborne MD [address] [place] [address] Unspecified Hypothyroidism (Primary Dx) Social History Tobacco Use Types Packs/Day Years Used Date Smoking Tobacco: Never Assessed Comments Unknown Sex and Gender Information Value Date Recorded Sex Assigned at Not on file Legal Sex Female 3:10 AM ORDER TO DELIVERY SUPERVISOR Gender Identity Not on file Sexual Orientation Not on file documented as of this encounter Plan of Treatment Not on file documented as of this encounter Visit Diagnoses Diagnosis Unspecified hypothyroidism- Primary documented in this encounter Additional Health Concerns Infection Onset Date Last Indicated Resolved Time COVID-19 03/28/2020 03/28/2020 04/17/2020 8:09 PM ORDER TO DELIVERY SUPERVISOR documented as of this encounter Care Teams Price Changer Relationship Specialty Start Date End Date Robert Buitrago MD [address] [place] [address] PCP - General Family Practice 03/14/20 documented as of this encounter
--- OUTSIDE RECORDS SUMMARY | 2025-02-19 08:47 | XMS_ITS | Encounter Summary ---
Author Organization [facility] Address [address] [place] [address] Care Team Providers Care Timber Mill Worker Name Role Phone Robert Buitrago MD Primary Care Provider +1 -[phone] Encounter Details Date Type Department Care Team (Latest Contact Info) Description 02/09/1999 Outpatient Historical [facility] Medicine[address] [phone] Sundeep Slater MD [address] [address] Gynecologic examination (Primary Dx) Social History Tobacco Use Types Packs/Day Years Used Date Smoking Tobacco: Never Assessed Comments Unknown Sex and Gender Information Value Date Recorded Sex Assigned at Not on file Legal Sex Female 3:10 AM CONSULTING ANALYST Gender Identity Not on file Sexual Orientation Not on file documented as of this encounter Plan of Treatment Not on file documented as of this encounter Visit Diagnoses Diagnosis Gynecologic examination- Primary Gynecological examination documented in this encounter Additional Health Concerns Infection Onset Date Last Indicated Resolved Time COVID-19 03/28/2020 03/28/2020 04/17/2020 8:09 PM CONSULTING ANALYST documented as of this encounter Care Teams Timber Mill Worker Relationship Specialty Start Date End Date Robert Buitrago MD [address] [place] [address] PCP - General Family Practice 03/14/20 documented as of this encounter
--- OUTSIDE RECORDS SUMMARY | 2025-02-19 08:47 | XMS_ITS | Encounter Summary ---
Author Organization [facility] Address [address] [place] [address] Care Team Providers Care Route Sales Associate Name Role Phone Robert Buitrago MD Primary Care Provider +1 -[phone] Encounter Details Date Type Department Care Team (Latest Contact Info) Description 06/20/1999 Outpatient Historical [facility] Medicine[address] [phone] Sundeep Slater MD [address] [address] Esophageal reflux (Primary Dx) Social History Tobacco Use Types Packs/Day Years Used Date Smoking Tobacco: Never Assessed Comments Unknown Sex and Gender Information Value Date Recorded Sex Assigned at Not on file Legal Sex Female 3:10 AM ASPHALT SPREADER Gender Identity Not on file Sexual Orientation Not on file documented as of this encounter Plan of Treatment Not on file documented as of this encounter Visit Diagnoses Diagnosis Esophageal reflux- Primary documented in this encounter Additional Health Concerns Infection Onset Date Last Indicated Resolved Time COVID-19 03/28/2020 03/28/2020 04/17/2020 8:09 PM ASPHALT SPREADER documented as of this encounter Care Teams Route Sales Associate Relationship Specialty Start Date End Date Robert Buitrago MD [address] [place] [address] PCP - General Family Practice 12/1/20 documented as of this encounter
--- OUTSIDE RECORDS SUMMARY | 2025-02-19 08:47 | XMS_ITS | Encounter Summary ---
Author Organization [facility] Address [address] [place] [address] Care Team Providers Care Light Industrial Name Role Phone Robert Buitrago MD Primary Care Provider +1 -[phone] Encounter Details Date Type Department Care Team (Latest Contact Info) Description 07/01/2001 Outpatient [facility] [address] [place] [address] Yareli Boucher MD NO ADDRESS ON FILE OTITIS MEDIA NOS (Primary Dx) Social History Tobacco Use Types Packs/Day Years Used Date Smoking Tobacco: Never Assessed Comments Unknown Sex and Gender Information Value Date Recorded Sex Assigned at Not on file Legal Sex Female 3:10 AM TURBO GENERATOR OILER Gender Identity Not on file Sexual Orientation Not on file documented as of this encounter Plan of Treatment Not on file documented as of this encounter Visit Diagnoses Diagnosis Unspecified otitis media- Primary documented in this encounter Additional Health Concerns Infection Onset Date Last Indicated Resolved Time COVID-19 03/28/2020 03/28/2020 04/17/2020 8:09 PM TURBO GENERATOR OILER documented as of this encounter Care Teams Light Industrial Relationship Specialty Start Date End Date Robert Buitrago MD [address] [place] [address] PCP - General Family Practice 03/14/20 documented as of this encounter
--- OUTSIDE RECORDS SUMMARY | 2025-02-19 08:47 | XMS_ITS | Encounter Summary ---
Author Organization [facility] Address [address] [place] [address] Care Team Providers Care Motorcycle Assembler Name Role Phone Robert Buitrago MD Primary Care Provider +1 -[phone] Encounter Details Date Type Department Care Team (Late st Contact Info) Description 01/23/2004 Outpatient [facility] Family Medicine[address] [address] [facility], [address] [address] Social History Tobacco Use Types Packs/Day Years Used Date Smoking Tobacco: Never Assessed Comments Unknown Sex and Gender Information Value Date Recorded Sex Assigned at Not on file Legal Sex Female 3:10 AM BUTTER GRADER Gender Identity Not on file Sexual Orientation Not on file documented as of this encounter Plan of Treatment Not on file documented as of this encounter Visit Diagnoses Not on filedocumented in this encounter Additional Health Concerns Infection Onset Date Last Indicated Resolved Time COVID-19 03/28/2020 03/28/2020 04/17/2020 8:09 PM BUTTER GRADER documented as of this encounter Care Teams Motorcycle Assembler Relationship Specialty Start Date End Date Robert Buitrago MD [address] [place] [address] PCP - General Family Practice 03/14/20 documented as of this encounter
--- OUTSIDE RECORDS SUMMARY | 2025-02-19 08:47 | XMS_ITS | Encounter Summary ---
Author Organization [facility] Address [address] [place] [address] Care Team Providers Care Steel Box Toe Inserter Name Role Phone Robert Buitrago MD Primary Care Provider +1 -[phone] Encounter Details Date Type Department Care Team (Latest Contact Info) Description 01/27/2007 Outpatient Historical [facility] Family Medicine[address] [phone] Miriam Osborne MD [facility]2 [place], [place] [address] Unspecified Endocrine Disorder (Primary Dx); Routine Gynecological Examination Social History Tobacco Use Types Packs/Day Years Used Date Smoking Tobacco: Never Assessed Comments Unknown Sex and Gender Information Value Date Recorded Sex Assigned at Not on file Legal Sex Female 3:10 AM ALLIGATOR HUNTER Gender Identity Not on file Sexual Orientation Not on file documented as of this encounter Plan of Treatment Not on file documented as of this encounter Visit Diagnoses Diagnosis Unspecified endocrine disorder- Primary Routine gynecological examination documented in this encounter Additional Health Concerns Infection Onset Date Last Indicated Resolved Time COVID-19 03/28/2020 03/28/2020 04/17/2020 8:09 PM ALLIGATOR HUNTER documented as of this encounter Care Teams Steel Box Toe Inserter Relationship Specialty Start Date End Date Robert Buitrago MD [address] [place] [address] PCP - General Family Practice 03/14/20 documented as of this encounter
--- OUTSIDE RECORDS SUMMARY | 2025-02-19 08:47 | XMS_ITS | Encounter Summary ---
Author Organization [facility] Address [address] [place] [address] Care Team Providers Care Golf Ball Inspector Name Role Phone Robert Buitrago MD Primary Care Provider +1 [phone] Encounter Details Date Type Department Care Team (Latest Contact Info) Description 12/13/1999 Outpatient Historical [facility] Medicine[address] [phone] Sundeep Slater MD [address] [address] Gynecologic examination (Primary Dx); Screening for malignant neoplasm of the cervix Social History Tobacco Use Types Packs/Day Years Used Date Smoking Tobacco: Never Assessed Comments Unknown Sex and Gender Information Value Date Recorded Sex Assigned at Not on file Legal Sex Female 3:10 AM REGIONAL OFFICE COORDINATOR Gender Identity Not on file Sexual Orientation Not on file documented as of this encounter Plan of Treatment Not on file documented as of this encounter Visit Diagnoses Diagnosis Gynecologic examination- Primary Gynecological examination Screening for malignant neoplasm of the cervix documented in this encounter Additional Health Concerns Infection Onset Date Last Indicated Resolved Time COVID-19 03/28/2020 03/28/2020 04/17/2020 8:09 PM REGIONAL OFFICE COORDINATOR documented as of this encounter Care Teams Golf Ball Inspector Relationship Specialty Start Date End Date Robert [place] [address] PCP - General Family Practice 03/14/20 documented as of this encounter
--- OUTSIDE RECORDS SUMMARY | 2025-02-19 08:47 | XMS_ITS | Encounter Summary ---
Author Organization [facility] Address [address] [place] [address] Care Team Providers Care Court Manager Name Role Phone Robert Buitrago MD Primary Care Provider +1 -[phone] Encounter Details Date Type Department Care Team (Late st Contact Info) Description 06/01/2007 Outpatient Historical [facility] End[facility] [place] [address] [facility] [address] [place] [phone] Prasanth Jackson MD [address] [facility] [address] [place] [address] Social History Tobacco Use Types Packs/Day Years Used Date Smoking Tobacco: Never Assessed Comments Unknown Sex and Gender Information Value Date Recorded Sex Assigned at Not on file Legal Sex Female 3:10 AM E MERCHANT Gender Identity Not on file Sexual Orientation Not on file documented as of this encounter Plan of Treatment Not on file documented as of this encounter Visit Diagnoses Not on filedocumented in this encounter Additional Health Concerns Infection Onset Date Last Indicated Resolved Time COVID-19 03/28/2020 03/28/2020 04/17/2020 8:09 PM E MERCHANT documented as of this encounter Care Teams Court Manager Relationship Specialty Start Date End Date Robert Buitrago MD [address] [place] [address] PCP - General Family Practice 03/14/20 documented as of this encounter
--- OUTSIDE RECORDS SUMMARY | 2025-02-19 08:47 | XMS_ITS | Encounter Summary ---
Author Organization [facility] Address [address] [place] [address] Care Team Providers Care Document Processing Specialist Name Role Phone Robert Buitrago MD Primary Care Provider +1 -[phone] Encounter Details Date Type Department Care Team (Late st Contact Info) Description 01/27/2007 Outpatient Historical [facility] Family Medicine[address] [phone] Miriam Osborne MD [facility]2 [place], [place] [address] Social History Tobacco Use Types Packs/Day Years Used Date Smoking Tobacco: Never Assessed Comments Unknown Sex and Gender Information Value Date Recorded Sex Assigned at Not on file Legal Sex Female 3:10 AM MOBILE UI DESIGNER Gender Identity Not on file Sexual Orientation Not on file documented as of this encounter Plan of Treatment Not on file documented as of this encounter Visit Diagnoses Not on filedocumented in this encounter Additional Health Concerns Infection Onset Date Last Indicated Resolved Time COVID-19 03/28/2020 03/28/2020 04/17/2020 8:09 PM MOBILE UI DESIGNER documented as of this encounter Care Teams Document Processing Specialist Relationship Specialty Start Date End Date Robert Buitrago [place] [address] PCP - General Family Practice 03/14/20 documented as of this encounter
--- OUTSIDE RECORDS SUMMARY | 2025-02-19 08:47 | XMS_ITS | Encounter Summary ---
Author Organization [facility] Address [address] [place] [address] Care Team Providers Care Tool Setter Name Role Phone Robert Buitrago MD Primary Care Provider +1 -[phone] Encounter Details Date Type Department Care Team (Latest Contact Info) Description 10/25/1999 Outpatient Historical [facility] Medicine[address] [address] Anish Saldaña MD [address] [place] [address] Unspecified local infection of skin and subcutaneous tissue (Primary Dx) Social History Tobacco Use Types Packs/Day Years Used Date Smoking Tobacco: Never Assessed Comments Unknown Sex and Gender Information Value Date Recorded Sex Assigned at Not on file Legal Sex Female 3:10 AM SPEED OPERATOR Gender Identity Not on file Sexual Orientation Not on file documented as of this encounter Plan of Treatment Not on file documented as of this encounter Visit Diagnoses Diagnosis Unspecified local infection of skin and subcutaneous tissue- Primary documented in this encounter Additional Health Concerns Infection Onset Date Last Indicated Resolved Time COVID-19 03/28/2020 03/28/2020 04/17/2020 8:09 PM SPEED OPERATOR documented as of this encounter Care Teams Tool Setter Relationship Specialty Start Date End Date Robert Buitrago MD [address] [place] [address] PCP - General Family Practice 03/14/20 documented as of this encounter
--- OUTSIDE RECORDS SUMMARY | 2025-02-19 08:47 | XMS_ITS | Encounter Summary ---
Author Organization [facility] Address [address] [place] [address] Care Team Providers Care Polysomnographic Tech Name Role Phone Robert Buitrago MD Primary Care Provider +1 -[phone] Encounter Details Date Type Department Care Team (Late st Contact Info) Description 01/23/2005 Outpatient [facility] Family Medicine[address] [address] [facility] 76, [address] [address] Social History Tobacco Use Types Packs/Day Years Used Date Smoking Tobacco: Never Assessed Comments Unknown Sex and Gender Information Value Date Recorded Sex Assigned at Not on file Legal Sex Female 3:10 AM SNAKE CHARMER Gender Identity Not on file Sexual Orientation Not on file documented as of this encounter Plan of Treatment Not on file documented as of this encounter Visit Diagnoses Not on filedocumented in this encounter Additional Health Concerns Infection Onset Date Last Indicated Resolved Time COVID-19 03/28/2020 03/28/2020 04/17/2020 8:09 PM SNAKE CHARMER documented as of this encounter Care Teams Polysomnographic Tech Relationship Specialty Start Date End Date Robert Buitrago MD [address] [place] [address] PCP - General Family Practice 03/14/20 documented as of this encounter
--- OUTSIDE RECORDS SUMMARY | 2025-02-19 08:47 | XMS_ITS | Encounter Summary ---
Author Organization [facility] Address [address] Rodriguezn: Epic Prelude ADT [place] [address] Care Team Providers Care Kitchen And Counter Worker Name Role Phone Robert Buitrago MD Primary Care Provider +1 -[phone] Encounter Details Date Type Department Care Team (Late st Contact Info) Description 09/14/2007 Outpatient Historical Seth Anne DO NO ADDRESS ON FILE Social History Tobacco Use Types Packs/Day Years Used Date Smoking Tobacco: Never Assessed Comments Unknown Sex and Gender Information Value Date Recorded Sex Assigned at Not on file Legal Sex Female 3:10 AM ELECTRICAL DISCHARGE MACHINE OPERATOR Gender Identity Not on file Sexual Orientation Not on file documented as of this encounter Plan of Treatment Not on file documented as of this encounter Procedures Procedure Name Priority Date/Time Associated Diagnosis Comments PATHOLOGY Routine 09/14/2007 8:11 AM CDT documented in this encounter Results * PATHOLOGY (09/14/2007 8:11 AM CDT) PATHOLOGY/CYT OLOGY REPORT [facility] Pathology Dept [facility] [address] Patient: KAILEY LIRA Accn No: [id number] Collected: 09/14/2007 8:11:00 AM SURGICAL PATHOLOGY FINAL REPORT Diagnosis A. Rectum, 10 cm, biopsy - colorectal type mucosal tissue with extensive biopsy artifact. / B. Colon, 35 cm, biopsy - suggestive of hyperplastic polyp. / C. Colon, 145 cm, biopsy - suggestive of hyperplastic polyp, four fragments. Nathan Navarrete M.D. (Electronically signed by) Verified: 09/16/07 DD /ERIS Pathologist Comment A. The extensive biopsy artifact precludes definitive assessment. There is no evidence of malignancy in this biopsy. Clinical Information Polyp. Specimen Source ARectum, 10 CM BColon, 35 CM CColon, 145 CM Microscopic Description Microscopic examination was performed. Gross Description Part A. Submitted in a container of formalin labelled Cook, #1 rectal polyp at 10 cm is a grayish-white soft tissue fragment measuring 0.2 x 0.2 x 0.1 cm. The specimen is submitted entirely in A1. Part B. Submitted in a container of formalin labelled Cook, #2 colon polyp, 35 cm are two darden tissue fragments measuring up to 0.2 cm. The specimen is submitted entirely in B1. Part C. Submitted in a container of formalin labelled Cook, #3 colon polyp at 145 cm are four darden tissue fragments ranging in size from 0.2 to 0.3 cm. The specimen is submitted entirely in C1. DLS/CEP INTERFACE SYSTEM 09/14/2007 8:11 AM CDT Seth Anne DO PATHOLOGY/CYTOLOGY ORDERABLES Final Result INTERFACE SYSTEM Refer to clinic/hospital department documented in this encounter Visit Diagnoses Not on filedocumented in this encounter Additional Health Concerns Infection Onset Date Last Indicated Resolved Time COVID-19 03/28/2020 03/28/2020 04/17/2020 8:09 PM ELECTRICAL DISCHARGE MACHINE OPERATOR documented as of this encounter Care Teams Kitchen And Counter Worker Relationship Specialty Start Date End Date Robert Buitrago MD [address] [place] [address] PCP - General Family Practice 03/14/20 documented as of this encounter
--- OUTSIDE RECORDS SUMMARY | 2025-02-19 08:47 | XMS_ITS | Encounter Summary ---
Author Organization [facility] Address [address] [place] [address] Care Team Providers Care Poke In Name Role Phone Robert Buitrago MD Primary Care Provider +1 -[phone] Encounter Details Date Type Department Care Team (Latest Contact Info) Description 11/19/[address] [facility] [address] [place] [address] Sneha Ellis, DECORATIVE ENGRAVER APPRENTICE [address] [place] [address] HEADACHE (Primary Dx) Social History Tobacco Use Types Packs/Day Years Used Date Smoking Tobacco: Never Assessed Comments Unknown Sex and Gender Information Value Date Recorded Sex Assigned at Not on file Legal Sex Female 3:10 AM SEAFOOD TECHNOLOGY SPECIALIST Gender Identity Not on file Sexual Orientation Not on file documented as of this encounter Plan of Treatment Not on file documented as of this encounter Visit Diagnoses Diagnosis Headache(784.0)- Primary Headache documented in this encounter Additional Health Concerns Infection Onset Date Last Indicated Resolved Time COVID-19 03/28/2020 03/28/2020 04/17/2020 8:09 PM SEAFOOD TECHNOLOGY SPECIALIST documented as of this encounter Care Teams Poke In Relationship Specialty Start Date End Date Robert Buitrago MD [address] [place] [address] PCP - General Family Practice 03/14/20 documented as of this encounter
--- OUTSIDE RECORDS SUMMARY | 2025-02-19 08:47 | XMS_ITS | Encounter Summary ---
Author Organization [facility] Address [address] [place] [address] Care Team Providers Care Outboard Motorboat Rigger Name Role Phone Robert Buitrago MD Primary Care Provider +1 -[phone] Encounter Details Date Type Department Care Team (Latest Contact Info) Description 04/01/2001 Outpatient Historical [facility] [address] [place] [address] Yareli Boucher MD NO ADDRESS ON FILE ACUTE MAXILLARY SINUSITIS (Primary Dx) Social History Tobacco Use Types Packs/Day Years Used Date Smoking Tobacco: Never Assessed Comments Unknown Sex and Gender Information Value Date Recorded Sex Assigned at Not on file Legal Sex Female 3:10 AM COMMAND CENTER OFFICER Gender Identity Not on file Sexual Orientation Not on file documented as of this encounter Plan of Treatment Not on file documented as of this encounter Visit Diagnoses Diagnosis Acute maxillary sinusitis- Primary documented in this encounter Additional Health Concerns Infection Onset Date Last Indicated Resolved Time COVID-19 03/28/2020 03/28/2020 04/17/2020 8:09 PM COMMAND CENTER OFFICER documented as of this encounter Care Teams Outboard Motorboat Rigger Relationship Specialty Start Date End Date Robert Buitrago MD [address] [place] [address] PCP - General Family Practice 03/14/20 documented as of this encounter
--- OUTSIDE RECORDS SUMMARY | 2025-02-19 08:47 | XMS_ITS | Encounter Summary ---
Author Organization [facility] Address [address] [place] [address] Care Team Providers Care Photogrammetric Surveyor Name Role Phone Robert Buitrago MD Primary Care Provider +1 -[phone] Encounter Details Date Type Department Care Team (Latest Contact Info) Description 12/08/[address] [facility] [address] [phone] Georgia Betts MD NO ADDRESS ON FILE Other screening mammogram (Primary Dx) Social History Tobacco Use Types Packs/Day Years Used Date Smoking Tobacco: Never Assessed Comments Unknown Sex and Gender Information Value Date Recorded Sex Assigned at Not on file Legal Sex Female 3:10 AM DISTRICT GAUGER Gender Identity Not on file Sexual Orientation Not on file documented as of this encounter Plan of Treatment Not on file documented as of this encounter Visit Diagnoses Diagnosis Other screening mammogram- Primary documented in this encounter Additional Health Concerns Infection Onset Date Last Indicated Resolved Time COVID-19 03/28/2020 03/28/2020 04/17/2020 8:09 PM DISTRICT GAUGER documented as of this encounter Care Teams Photogrammetric Surveyor Relationship Specialty Start Date End Date Robert Buitrago MD [address] [place] [address] PCP - General Family Practice 03/14/20 documented as of this encounter
--- OUTSIDE RECORDS SUMMARY | 2025-02-19 08:47 | XMS_ITS | Encounter Summary ---
Author Organization [facility] Address [address] [place] [address] Care Team Providers Care Cnc Milling Machine Operator Name Role Phone Robert Buitrago MD Primary Care Provider +1 -[phone] Encounter Details Date Type Department Care Team (Late st Contact Info) Description 09/26/2009 Ancillary Orders [facility] [address] [place] [address] Sneha Ellis, SUPERVISOR WINDING DEPARTMENT [address] [place] [phone] Social History Tobacco Use Types Packs/Day Years Used Date Smoking Tobacco: Never Assessed Comments No Sex and Gender Information Value Date Recorded Sex Assigned at Not on file Legal Sex Female 3:10 AM POT FIRER Gender Identity Not on file Sexual Orientation Not on file documented as of this encounter Plan of Treatment Not on file documented as of this encounter Visit Diagnoses Not on filedocumented in this encounter Additional Health Concerns Infection Onset Date Last Indicated Resolved Time COVID-19 03/28/2020 03/28/2020 04/17/2020 8:09 PM POT FIRER documented as of this encounter Care Teams Cnc Milling Machine Operator Relationship Specialty Start Date End Date Robert Buitrago MD [address] [place] [address] PCP - General Family Practice 03/14/20 documented as of this encounter
--- OUTSIDE RECORDS SUMMARY | 2025-02-19 08:47 | XMS_ITS | Encounter Summary ---
Author Organization [facility] Address [address] [place] [address] Care Team Providers Care Home Designer Name Role Phone Robert Buitrago MD Primary Care Provider +1 [phone] Encounter Details Date Type Department Care Team (Late st Contact Info) Description 02/27/2007 Outpatient [facility] Breast Center [facility] [address] [place] [address] Miriam Osborne MD [facility] [place], [place] [id number] Social History Tobacco Use Types Packs/Day Years Used Date Smoking Tobacco: Never Assessed Comments Unknown Sex and Gender Information Value Date Recorded Sex Assigned at Not on file Legal Sex Female 3:10 AM STOGIE PACKER Gender Identity Not on file Sexual Orientation Not on file documented as of this encounter Plan of Treatment Not on file documented as of this encounter Visit Diagnoses Not on filedocumented in this encounter Additional Health Concerns Infection Onset Date Last Indicated Resolved Time COVID-19 03/28/2020 03/28/2020 04/17/2020 8:09 PM STOGIE PACKER documented as of this encounter Care Teams Home Designer Relationship Specialty Start Date End Date Robert Buitrago MD [address] [place] [address] PCP - General Family Practice 03/14/20 documented as of this encounter
--- OUTSIDE RECORDS SUMMARY | 2025-02-19 08:47 | XMS_ITS | Encounter Summary ---
Author Organization [facility] Address [address] [place] [address] Care Team Providers Care Electronics Parts Sales Representative Name Role Phone Robert Buitrago MD Primary Care Provider +1 [phone] Encounter Details Date Type Department Care Team (Latest Contact Info) Description 06/19/2001 Outpatient Historical [facility] [address] [place] [address] Yareli Boucher MD NO ADDRESS ON FILE OTITIS MEDIA NOS (Primary Dx) Social History Tobacco Use Types Packs/Day Years Used Date Smoking Tobacco: Never Assessed Comments Unknown Sex and Gender Information Value Date Recorded Sex Assigned at Not on file Legal Sex Female 3:10 AM CRISIS COUNSELOR Gender Identity Not on file Sexual Orientation Not on file documented as of this encounter Plan of Treatment Not on file documented as of this encounter Visit Diagnoses Diagnosis Unspecified otitis media- Primary documented in this encounter Additional Health Concerns Infection Onset Date Last Indicated Resolved Time COVID-19 03/28/2020 03/28/2020 04/17/2020 8:09 PM CRISIS COUNSELOR documented as of this encounter Care Teams Electronics Parts Sales Representative Relationship Specialty Start Date End Date Robert Buitrago MD [address] [place] [address] PCP - General Family Practice 03/14/20 documented as of this encounter
--- OUTSIDE RECORDS SUMMARY | 2025-02-19 08:47 | XMS_ITS | Encounter Summary ---
Author Organization [facility] Address [address] [address] Phone Care Team Providers Care Budget Report Clerk Name Role Phone Kathia Johnson MACHINERY MECHANIC Primary Care Provider Denisha martin Reason for Visit * Reason Comments Med Refill Encounter Details Date Type Department Care Team (Late st Contact Info) Description 02/13/2025 [facility] [address] [id number] Manuel Justin MD [address] [id number] Paroxysmal atrial fibrillation (CMS/HCC) Social History Tobacco Use Types Packs/Day Years Used Date Smoking Tobacco: Former Cigarettes 1970 Smokeless Tobacco: Never Alcohol Use Standard Drinks/Week Comments Not Currently 0 (1 standard drink = 0.6 oz pur e alcohol) AUDIT-C Answer Date Recorded Q1: How often do you have a drink containing alcohol? Never 09/29/2023 Q2: How many drinks containi ng alcohol do you have on a typical day when you are drinking? Patient does not drink Q3: How often do you have si x or more drinks on one occasion? Never 09/29/2023 PHQ-2 Answer Date Recorded Patient Health Questionnaire-2 Score 0 09/29/2023 [facility] - Mental Health Answer Date Recorde d Little interest or pleasure in doing things Not at all 09/29/2023 Feeling down, depressed, or hopeless Not at all 09/29/2023 Feeling of Stress Not on file 09/29/2023 Comments Unknown Sex and Gender Information Value Date Recorded Sex Assigned at Female 08/08/2023 5:12 PM CDT Legal Sex Female 10:45 AM CDT Gender Identity Female 08/08/2023 5:11 PM CDT Sexual Orientation Straight 08/08/2023 5: 12 PM CDT documented as of this encounter Plan of Treatment Not on file documented as of this encounter Visit Diagnoses Diagnosis Paroxysmal atrial fibrillation (CMS/HCC) Atrial fibrillation documented in this encounter Care Teams Budget Report Clerk Relationship Specialty Start Date End Date Kathia Johnson FNP [address] [place] [address] PCP - General Family Medicine 08/05/23 documented as of this encounter
--- OUTSIDE RECORDS SUMMARY | 2025-02-19 08:47 | XMS_ITS | Encounter Summary ---
Author Organization [facility] Address [address] [place] [address] Care Team Providers Care Evs Attendant Name Role Phone Robert Buitrago MD Primary Care Provider [phone] Encounter Details Date Type Department Care Team (Latest Contact Info) Description 08/25/1998 Outpatient Historical [facility] Medicine[address] [address] Sundeep Slater MD [address] [address] Pain in joint, forearm (Primary Dx); Symptomatic menopausal or female climacteric states Social History Tobacco Use Types Packs/Day Years Used Date Smoking Tobacco: Never Assessed Comments Unknown Sex and Gender Information Value Date Recorded Sex Assigned at Not on file Legal Sex Female 3:10 AM DOPE POURER Gender Identity Not on file Sexual Orientation Not on file documented as of this encounter Plan of Treatment Not on file documented as of this encounter Visit Diagnoses Diagnosis Pain in joint, forearm- Primary Symptomatic menopausal or female climacteric states documented in this encounter Additional Health Concerns Infection Onset Date Last Indicated Resolved Time COVID-19 03/28/2020 03/28/2020 04/17/2020 8:09 PM DOPE POURER documented as of this encounter Care Teams Evs Attendant Relationship Specialty Start Date End Date Robert Buitrago MD [address] [place] [phone] PCP - General Family Practice 03/14/20 documented as of this encounter
--- OUTSIDE RECORDS SUMMARY | 2025-02-19 08:47 | XMS_ITS | Encounter Summary ---
Author Organization [facility] Address [address] [place] [address] Care Team Providers Care Public Service Director Name Role Phone Robert Buitrago MD Primary Care Provider [phone] [phone] Encounter Details Date Type Department Care Team (Latest Contact Info) Description 05/29/1998 Outpatient Historical [facility] Medicine[address] [address] Anish Saldaña MD [address] [place] [address] Swelling, mass, or lump in head and neck (Primary Dx) Social History Tobacco Use Types Packs/Day Years Used Date Smoking Tobacco: Never Assessed Comments Unknown Sex and Gender Information Value Date Recorded Sex Assigned at Not on file Legal Sex Female 3:10 AM MUSEUM PREPARATOR Gender Identity Not on file Sexual Orientation Not on file documented as of this encounter Plan of Treatment Not on file documented as of this encounter Visit Diagnoses Diagnosis Swelling, mass, or lump in head and neck- Primary documented in this encounter Additional Health Concerns Infection Onset Date Last Indicated Resolved Time COVID-19 03/28/2020 03/28/2020 04/17/2020 8:09 PM MUSEUM PREPARATOR documented as of this encounter Care Teams Public Service Director Relationship Specialty Start Date End Date Robert Buitrago [place] [address] PCP - General Family Practice 03/14/20 documented as of this encounter
--- OUTSIDE RECORDS SUMMARY | 2025-02-19 08:47 | XMS_ITS | Encounter Summary ---
Author Organization [facility] Address [address] [place] [address] Care Team Providers Care Digital Measurement Advisor Name Role Phone Robert Buitrago MD Primary Care Provider [phone] [phone] Encounter Details Date Type Department Care Team (Latest Contact Info) Description 02/14/2025 Results Follow-Up [facility] Endocrinology [facility] [place] [address] [place] [address] Irene Zheng MD [address] [place] [address] COMPREHENSIVE METABOLIC PANEL, LIPID PANEL, QUEST TEST IN QUESTION (ACTION NEEDED) (NO MY CHART) Social History Tobacco Use Types Packs/Day Years Used Date Smoking Tobacco: Former Cigarettes 1 35 0 12/10/1972 - 12/11/2007 Passive Smoke Exposure: Past Smokeless Tobacco: Never Comments:Quit smoking: quit 2 years ago Alcohol Use Standard Drinks/Week Comments No 0 (1 standard drink = 0.6 oz pur e alcohol) Feeling Safe Answer Date Recorded Are you in a relationship wi th someone who hurts you emotionally and/or physically? No 09/16/2022 Comments No Sex and Gender Information Value Date Recorded Sex Assigned at Not on file Legal Sex Female 1:40 PM ROCKBOARD LATHER Gender Identity Not on file Sexual Orientation Not on file documented as of this encounter Plan of Treatment Upcoming Encounters Date Type Department Care Team (Late st Contact Info) Description 05/12/2025 9:20 AM ROCKBOARD LATHER Video Visit [facility] Endocrinology [facility] [place] [address] [phone] Irene Zheng MD [address] [address] 06/24/2025 9:20 AM CDT Office Visit [facility] [address] [address] Gisele Mullen NP [address] [place] [address] 01/13/2026 10:20 AM CDT Office Visit [facility] [address] [facility] [address] [place] [address] Trina Winter, [facility] [address] [facility] [address] [place] [address] documented as of this encounter Visit Diagnoses Not on filedocumented in this encounter Care Teams Digital Measurement Advisor Relationship Specialty Start Date End Date Robert Buitrago MD [address] [address] PCP - General Family Practice 03/14/20 documented as of this encounter
--- OUTSIDE RECORDS SUMMARY | 2025-02-19 08:47 | XMS_ITS | Encounter Summary ---
Author Organization [facility] Address [address] [place] [address] Care Team Providers Care Security Director Name Role Phone Robert Buitrago MD Primary Care Provider [phone] [phone] Encounter Details Date Type Department Care Team (Latest Contact Info) Description 04/13/[address] [facility] [address] [place] [address] Avery Murguia MD [address] [address] OTITIS MEDIA NOS (Primary Dx) Social History Tobacco Use Types Packs/Day Years Used Date Smoking Tobacco: Never Assessed Comments Unknown Sex and Gender Information Value Date Recorded Sex Assigned at Not on file Legal Sex Female 3:10 AM INDUSTRIAL CLEANER Gender Identity Not on file Sexual Orientation Not on file documented as of this encounter Plan of Treatment Not on file documented as of this encounter Visit Diagnoses Diagnosis Unspecified otitis media- Primary documented in this encounter Additional Health Concerns Infection Onset Date Last Indicated Resolved Time COVID-19 03/28/2020 03/28/2020 04/17/2020 8:09 PM INDUSTRIAL CLEANER documented as of this encounter Care Teams Security Director Relationship Specialty Start Date End Date Robert Buitrago MD [address] [place] [address] PCP - General Family Practice 03/14/20 documented as of this encounter
--- OUTSIDE RECORDS SUMMARY | 2025-02-19 08:47 | XMS_ITS | Encounter Summary ---
Author Organization [facility] Address [address] [place] [address] Care Team Providers Care Planer Setup Operator Name Role Phone Robert Buitrago MD Primary Care Provider [phone] Encounter Details Date Type Department Care Team (Latest Contact Info) Description 09/25/1998 Outpatient Historical [facility] Marin Kendall MD NO ADDRESS ON FILE Osteoarthrosis, unspecified whether generalized or localized, forearm (Primary Dx) Social History Tobacco Use Types Packs/Day Years Used Date Smoking Tobacco: Never Assessed Comments Unknown Sex and Gender Information Value Date Recorded Sex Assigned at Not on file Legal Sex Female 3:10 AM ELEMENTARY SCHOOL REGISTRAR Gender Identity Not on file Sexual Orientation Not on file documented as of this encounter Plan of Treatment Not on file documented as of this encounter Visit Diagnoses Diagnosis Osteoarthrosis, unspecified whether generalized or localized, forearm- Primary documented in this encounter Additional Health Concerns Infection Onset Date Last Indicated Resolved Time COVID-19 03/28/2020 03/28/2020 04/17/2020 8:09 PM ELEMENTARY SCHOOL REGISTRAR documented as of this encounter Care Teams Planer Setup Operator Relationship Specialty Start Date End Date Robert Buitrago MD [address] [place] [address] PCP - General Family Practice 03/14/20 documented as of this encounter
--- OUTSIDE RECORDS SUMMARY | 2025-02-19 08:47 | XMS_ITS | Encounter Summary ---
Author Organization [facility] Address [address] [place] [address] Care Team Providers Care Multimedia Producer Name Role Phone Robert Buitrago MD Primary Care Provider [phone] Encounter Details Date Type Department Care Team ([facility] st Contact Info) Description 07/05/2010 Ancillary Orders [facility] [address] [facility] [address] [place] [address] Prasanth Roman MD [address] [facility] [address] [place] [address] Other screening mammogram Social History Tobacco Use Types Packs/Day Years Used Date Smoking Tobacco: Former Cigarettes 1 25 Comments:quit 2 years ago Comments No Sex and Gender Information Value Date Recorded Sex Assigned at Not on file Legal Sex Female 3:10 AM RIVET MACHINE OPERATOR Gender Identity Not on file Sexual Orientation Not on file documented as of this encounter Plan of Treatment Not on file documented as of this encounter Visit Diagnoses Diagnosis Other screening mammogram documented in this encounter Additional Health Concerns Infection Onset Date Last Indicated Resolved Time COVID-19 03/28/2020 03/28/2020 04/17/2020 8:09 PM RIVET MACHINE OPERATOR documented as of this encounter Care Teams Multimedia Producer Relationship Specialty Start Date End Date Robert Buitrago MD [address] [place] [phone] PCP - General Family Practice 03/14/20 documented as of this encounter
--- OUTSIDE RECORDS SUMMARY | 2025-02-19 08:47 | XMS_ITS | Encounter Summary ---
Author Organization [facility] Address [address] [place] [address] Care Team Providers Care Station Engineer Chief Name Role Phone Robert Buitrago MD Primary Care Provider [phone] [phone] Encounter Details Date Type Department Care Team (Latest Contact Info) Description 12/17/2000 Outpatient Historical [facility] [address] [phone] Lucero Hyman MD NO ADDRESS ON FILE Nonspecific abnormal findings on radiological or other examinations of the breast (Primary Dx) Social History Tobacco Use Types Packs/Day Years Used Date Smoking Tobacco: Never Assessed Comments Unknown Sex and Gender Information Value Date Recorded Sex Assigned at Not on file Legal Sex Female 3:10 AM POLYMERIZATION HELPER Gender Identity Not on file Sexual Orientation Not on file documented as of this encounter Plan of Treatment Not on file documented as of this encounter Visit Diagnoses Diagnosis Nonspecific abnormal findings on radiological or other examinations of the breast- Primary documented in this encounter Additional Health Concerns Infection Onset Date Last Indicated Resolved Time COVID-19 03/28/2020 03/28/2020 04/17/2020 8:09 PM POLYMERIZATION HELPER documented as of this encounter Care Teams Station Engineer Chief Relationship Specialty Start Date End Date Robert Buitrago MD [address] [place] [address] PCP - General Family Practice 03/14/20 documented as of this encounter
--- OUTSIDE RECORDS SUMMARY | 2025-02-19 08:47 | XMS_ITS | Encounter Summary ---
Author Organization [facility] Address [address] [place] [address] Care Team Providers Care Software Writer Name Role Phone Robert Buitrago MD Primary Care Provider [phone] [phone] Encounter Details Date Type Department Care Team (Latest Contact Info) Description 11/22/1999 Outpatient Historical [facility] [address] [address] Anish Saldaña MD [address] [place] [address] Cellulitis and abscess of leg, except foot (Primary Dx) Social History Tobacco Use Types Packs/Day Years Used Date Smoking Tobacco: Never Assessed Comments Unknown Sex and Gender Information Value Date Recorded Sex Assigned at Not on file Legal Sex Female 3:10 AM MEDICAL INSURANCE BILLER Gender Identity Not on file Sexual Orientation Not on file documented as of this encounter Plan of Treatment Not on file documented as of this encounter Visit Diagnoses Diagnosis Cellulitis and abscess of leg, except foot- Primary documented in this encounter Additional Health Concerns Infection Onset Date Last Indicated Resolved Time COVID-19 03/28/2020 03/28/2020 04/17/2020 8:09 PM MEDICAL INSURANCE BILLER documented as of this encounter Care Teams Software Writer Relationship Specialty Start Date End Date Robert Buitrago MD [address] [place] [address] PCP - General Family Practice 03/14/20 documented as of this encounter
--- OUTSIDE RECORDS SUMMARY | 2025-02-19 08:47 | XMS_ITS | Encounter Summary ---
Author Organization [facility] Address [address] [place] [address] Care Team Providers Care Meat Grader Name Role Phone Robert Buitrago MD Primary Care Provider [phone] [phone] Encounter Details Date Type Department Care Team (Late st Contact Info) Description 09/26/2009 Ancillary Orders [facility] [address] [place] [address] Sneha Ellis, BIG DATA LEAD [address] [place] [phone] Chest Tightness, Discomfort, or Pressure Social History Tobacco Use Types Packs/Day Years Used Date Smoking Tobacco: Never Assessed Comments No Sex and Gender Information Value Date Recorded Sex Assigned at Not on file Legal Sex Female 3:10 AM GRAPHIC COORDINATOR Gender Identity Not on file Sexual Orientation Not on file documented as of this encounter Plan of Treatment Not on file documented as of this encounter Procedures Procedure Name Priority Date/Time Associated Diagnosis Comments ECHO PRE TEST Routine 09/26/2009 10:22 AM CDT Chest Tightness, Discomfort, or Pressure documented in this encounter Results * ECHO PRE TEST (09/26/2009 10:22 AM CDT) [facility] - 09/26/2009 10:22 AM CDT Order information only. See the Stress Echo Report for result. Procedure Note Dixie Eli - 09/26/2009 Order information only. See the Stress Echo Report for result. us Sneha DALLASP US ORDERABLES Final Resul t [facility] documented in this encounter Visit Diagnoses Diagnosis Chest tightness, discomfort, or pressure Other chest pain documented in this encounter Additional Health Concerns Infection Onset Date Last Indicated Resolved Time COVID-19 03/28/2020 03/28/2020 04/17/2020 8:09 PM GRAPHIC COORDINATOR documented as of this encounter Care Teams Meat Grader Relationship Specialty Start Date End Date Robert Buitrago MD [address] [place] [address] PCP - General Family Practice 03/14/20 documented as of this encounter
--- OUTSIDE RECORDS SUMMARY | 2025-02-19 08:47 | XMS_ITS | Clinical Summary ---
Author Organization [facility] Address [address] [place] [address] Phone Care Team Providers Care Area Safety Manager Name Role Phone Kathia Johnson CABLE RIGGER Primary Care Provider U geovannaailkelley Allergies Active Allergy Reactions Criticality Noted Date Comments Apixaban Rash Low 08/22/2023 Atorvastatin Other Low 01/01/2022 Myalgia Fexofenadine Anaphylaxis High 10/26/2008 Gadolinium-Containing Contra st Media Rash Low 08/20/2017 Predisol 50 Nausea And Vomiting Low 09/23/2018 Simvastatin Other Low 01/01/2022 Myalgia Sulfa (Sulfonamide Antibiotics) Nausea And Vomiting Low 01/21/2008 Medications sertraline (Zoloft) 25 mg tablet Take 1 tablet by mouth 1 (one) time each day. 1 Active azelastine (Astelin) 137 mcg (0.1 %) nasal spray Administer 2 sprays into affected nostril(s) every 12 (twelve) hours. 3 Active cetirizine (ZyrTEC) 10 mg tablet Take 10 mg by mouth. 0 Active EPINEPHrine (Epipen) 0.3 mg/0.3 mL injection syringe Inject 0.3 mg into the shoulder, thigh, or buttocks 1 (one) time each day at the same time. 4 Active ezetimibe (Zetia) 10 mg tablet Take 10 mg by mouth 1 (one) time each day. Active bempedoic acid 180 mg tabletIndications: Mixed hyperlipidemia Take 1 tablet by mouth 1 (one) time each day. 90 tablet 3 4 Active metoprolol succinate XL (Toprol-XL) 100 mg 24 hr tablet Take 1 tablet (100 mg total) by mouth 1 (one) time each day. Do not crush or chew. 90 tablet 3 4 Active dabigatran etexilate (Pradaxa) 150 mg capsuleIndications :Paroxysmal atrial fibrillation (CMS/HCC) TAKE 1 CAPSULE BY MOUTH TWICE DAILY DO NOT CRUSH OR CHEW 60 capsule 5 Active Encounters Date Type Department Care Team Description 02/13/2025 Formerly [facility] [address] [place] [id number] Manuel Justin MD Paroxysmal atrial fibrillation (CMS/HCC) 01/18/2025 Formerly [facility] [address] [place] [address] Manuel Justin MD Paroxysmal atrial fibrillation (CMS/HCC) from Last 3 Months Family History Medical History Relation Comments Atrial fibrillation Brother Cancer Brother Diabetes type I Brother Lung disease Brother Heart disease Father Lung disease Father Heart attack Mother Relation Status Comments Brother Father Mother Social History Tobacco Use Types Packs/Day Years Used Date Smoking Tobacco: Former Cigarettes 2 1970 Smokeless Tobacco: Never Alcohol Use Standard [...] Recorded Patient Health Questionnaire-2 Score 0 09/29/2023 [facility] - Mental Health Answer Date Recorde d [...] Orientation Straight 08/08/2023 5: 12 PM CDT Last Filed Vital Signs Vital Sign Reading Time Taken Comments Blood Pressure 132/80 09/29/2023 3:32 PM CDT Pulse 71 09/29/2023 3:31 PM CDT Temperature 36.7 C (98.1 F) 09/29/2023 3:31 PM CDT Respiratory Rate - - Oxygen Saturation 95% 09/29/2023 3:31 PM CDT Inhaled Oxygen Concentration - - Weight 72.1 kg (159 lb) 09/29/2023 3:31 PM CDT Height 167.6 cm (5' 6 ) 09/29/2023 3:31 PM CDT Body Mass Index 25.66 09/29/2023 3:31 PM CDT Plan of Treatment Health Maintenance Due Date Last Done Comments CT Colonography 1951 FIT-DNA 1951 FIT 1951 Sigmoidoscopy 1951 MMR Vaccines (1 of 1 - Standard series) 1952 Varicella Vaccines (1 of 2 - 13+ 2-dose series) 1964 Depression Screening 1969 Diabetes Screening 1969 Social Drivers of Health (SDoH) 1969 Hepatitis A Vaccines (1 of 2 - Risk 2-dose series) 1970 Mammogram 1991 DTaP,Tdap,and Td Vaccines (2 - Tdap) 11/22/1999 10/25/1999 Pneumococcal Vaccine: 50+ Years (1 of 1 - PCV) 2001 Zoster Vaccines (1 of 2) 2001 Hepatitis B Vaccines (1 of 3 - Risk 3-dose series) 2011 RSV Vaccines (1 - Risk 60-74 years 1-dose series) 2011 FOBT 03/21/2018 03/21/2017 Medicare Initial AWV [id number] 06/12/2022 Complete Fall Risk Assessment 09/28/2024 09/29/2023, 09/29/2023, 09/29/2023, Additional history exists COVID-19 Vaccine ( season) 2024 Influenza Vaccine (#1) 2024 Colonoscopy 07/27/2028 07/27/2018 Colorectal Cancer Screening 07/27/2028 HIB Vaccines Aged Out No longer eligi ble based on patient's age to complete this topic HPV Vaccines Aged Out No longer eligi ble based on patient's age to complete this topic IPV Vaccines Aged Out No longer eligi ble based on patient's age to complete this topic Meningococcal B Vaccine Aged Out No l onger eligible based on patient's age to complete this topic Meningococcal Vaccine Aged Out No yeimy elmer eligible based on patient's age to complete this topic Pneumococcal Vaccine Aged Out No long er eligible based on patient's age to complete this topic Rotavirus Vaccines Aged Out No longer eligible based on patient's age to complete this topic [place] [address] [place] [address] MEDICARE Care Teams Area Safety Manager Relationship Specialty Start Date End Date Kathia Johnson FNP [address] [address] PCP - General Family Medicine 08/05/23
--- OUTSIDE RECORDS SUMMARY | 2025-02-19 08:47 | XMS_ITS | Encounter Summary ---
Author Organization [facility] Address [address] [place] [address] Care Team Providers Care Consumer Services Consultant Name Role Phone Robert Buitrago MD Primary Care Provider [phone] [phone] Encounter Details Date Type Department Care Team (Latest Contact Info) Description 12/21/2003 Outpatient Historical [facility] [address] [place] [address] Sneha Ellis, UNDER CUTTING MACHINE OPERATOR [address] [place] [address] ATTEN-SURG DRESSNG/SUTUR (Primary Dx) Social History Tobacco Use Types Packs/Day Years Used Date Smoking Tobacco: Never Assessed Comments Unknown Sex and Gender Information Value Date Recorded Sex Assigned at Not on file Legal Sex Female 3:10 AM LETTER STAMPING MACHINE OPERATOR Gender Identity Not on file Sexual Orientation Not on file documented as of this encounter Plan of Treatment Not on file documented as of this encounter Visit Diagnoses Diagnosis Attention to dressings and sutures- Primary documented in this encounter Additional Health Concerns Infection Onset Date Last Indicated Resolved Time COVID-19 03/28/2020 03/28/2020 04/17/2020 8:09 PM LETTER STAMPING MACHINE OPERATOR documented as of this encounter Care Teams Consumer Services Consultant Relationship Specialty Start Date End Date Robert Buitrago MD [address] [place] [address] PCP - General Family Practice 03/14/20 documented as of this encounter
--- OUTSIDE RECORDS SUMMARY | 2025-02-19 08:47 | XMS_ITS | Encounter Summary ---
Author Organization [facility] Address [address] [place] [address] Care Team Providers Care Final Inspector Name Role Phone Robert Buitrago MD Primary Care Provider [phone] [phone] Encounter Details Date Type Department Care Team (Latest Contact Info) Description 07/24/1998 [facility]patient [facility] [address] [place] [address] Robert Waite, DO [address] [place] [address] Chest pain, unspecified (Primary Dx); Dizziness and giddiness Social History Tobacco Use Types Packs/Day Years Used Date Smoking Tobacco: Never Assessed Comments Unknown Sex and Gender Information Value Date Recorded Sex Assigned at Not on file Legal Sex Female 3:10 AM COUNSELOR AT LAW Gender Identity Not on file Sexual Orientation Not on file documented as of this encounter Plan of Treatment Not on file documented as of this encounter Visit Diagnoses Diagnosis Chest pain, unspecified- Primary Dizziness and giddiness documented in this encounter Additional Health Concerns Infection Onset Date Last Indicated Resolved Time COVID-19 03/28/2020 03/28/2020 04/17/2020 8:09 PM COUNSELOR AT LAW documented as of this encounter Care Teams Final Inspector Relationship Specialty Start Date End Date Robert Buitrago MD [address] [place] [address] PCP - General Family Practice 03/14/20 documented as of this encounter
--- OUTSIDE RECORDS SUMMARY | 2025-02-19 08:47 | XMS_ITS | Encounter Summary ---
Author Organization [facility] Address [address] [place] [address] Care Team Providers Care Fly Frame Tender Name Role Phone Robert Buitrago MD Primary Care Provider [phone] [phone] Reason for Referral * Outpatient Services (Routine) - Closed Specialty Diagnoses / Procedures Referred By Contac t Referred To Contact Diagnoses Other screening mammogram Procedures MAMMO DIGITAL SCREEN IMPLANTS BILAT Prasanth Roman MD [address] [address] Phone: tel: fax: Referral ID Status Reason Start Date Expiration Date Visits Re quested Visits Authorized [id number] Closed 08/01/2010 01/28/2011 1 1 Encounter Details Date Type Department Care Team (Late st Contact Info) Description 08/01/2010 Ancillary Orders [facility] Breast [place] [address] [facility] [address] [place] [address] Prasanth Roman MD [address] [address] Other screening mammogram Social History Tobacco Use Types Packs/Day Years Used Date Smoking Tobacco: Former Cigarettes 1 25 Comments:quit 2 years ago Comments No Sex and Gender Information Value Date Recorded Sex Assigned at Not on file Legal Sex Female 3:10 AM MATERIAL CONTROLLER Gender Identity Not on file Sexual Orientation Not on file documented as of this encounter Plan of Treatment Not on file documented as of this encounter Results * MAMMO DIGITAL SCREEN IMPLANTS BILAT (08/01/2010 2:34 PM CDT) Anatomical Region Laterality Modality Breast Bilateral Mammography Impressions 08/03/2010 12:38 PM CDT : Bilateral screening mammogram suggests small implant leaks, bilaterally. This does represent an interval change when compared with the most recent previous study of 02/27/07 and plastic surgical consultation may prove helpful. With regards to the finding within both breasts, no suspicious findings were identified on either side. KG/eaw Narrative 08/03/2010 12:38 PM CDT BILATERAL SCREENING MAMMOGRAM: Bilateral CC and MLO views were obtained with routine positioning as well as with implant displacement. Comparison is made with the studies of 02/27/07 and 01/25/05. There are bilateral retroglandular implants. Since the most recent previous study of 2006, there is increased density abutting the superior aspect of the right implant suggesting a contained leak. There is also some linear hyperdensity abutting the left implant on the MLO projection, anteriorly. This is a new finding and again may represent a contained intracapsular leak. The implant-displaced views demonstrate dense breast tissue but no interval change and no suspicious findings are identified. The patient was denying any complaints. This digital mammogram was also analyzed by the Computer Aided Detection System (CAD), [employer] ImageHepato[employer]cker, Version 8.3. Procedure Note Lucero Hyman MD - 08/03/2010 BILATERAL SCREENING MAMMOGRAM: Bilateral CC and MLO views were obtained with routine positioning as wellas with implant displacement. Comparison is made with the studies of02/27/07 and 01/25/05. There are bilateral retroglandular implants. Since the most recentprevious study of 2006, there is increased density abutting the superioraspect of the right implant suggesting a contained leak. There is alsosome linear hyperdensity abutting the left implant on the MLO projection,anteriorly. This is a new finding and again may represent a containedintracapsular leak. The implant-displaced views demonstrate dense breast tissue but nointerval change and no suspicious findings are identified. The patientwas denying any complaints. This digital mammogram was also analyzed by the Computer Aided DetectionSystem (CAD), [employer] ImageChecker, Version 8.3. IMPRESSION: Bilateral screening mammogram suggests small implant leaks,bilaterally. This does represent an interval change when compared withthe most recent previous study of 02/27/07 and plastic surgicalconsultation may prove helpful. With regards to the finding within bothbreasts, no suspicious findings were identified on either side. KG/eaw us Prasanth Roman MD MAMMO ORDERABLES Final Result documented in this encounter Visit Diagnoses Diagnosis Other screening mammogram Other screening mammogram documented in this encounter Additional Health Concerns Infection Onset Date Last Indicated Resolved Time COVID-19 03/28/2020 03/28/2020 04/17/2020 8:09 PM MATERIAL CONTROLLER documented as of this encounter Care Teams Fly Frame Tender Relationship Specialty Start Date End Date Robert Buitrago MD [address] [place] [address] PCP - General Family Practice 03/14/20 documented as of this encounter
--- OUTSIDE RECORDS SUMMARY | 2025-02-19 08:48 | XMS_ITS | Encounter Summary ---
Author Organization [facility] Address [address] [place] [address] Care Team Providers Care Shirt Ironer Supervisor Name Role Phone Robert Buitrago MD Primary Care Provider [phone] [phone] Encounter Details Date Type Department Care Team (Latest Contact Info) Description 03/19/2004 Outpatient Historical [facility] [phone] Ban Jean MD [address] [place] [address] Plantar fibromatosis (Primary Dx) Social History Tobacco Use Types Packs/Day Years Used Date Smoking Tobacco: Never Assessed Comments Unknown Sex and Gender Information Value Date Recorded Sex Assigned at Not on file Legal Sex Female 3:10 AM MACHINE REPAIRER Gender Identity Not on file Sexual Orientation Not on file documented as of this encounter Plan of Treatment Not on file documented as of this encounter Visit Diagnoses Diagnosis Plantar fibromatosis- Primary Plantar fascial fibromatosis documented in this encounter Additional Health Concerns Infection Onset Date Last Indicated Resolved Time COVID-19 03/28/2020 03/28/2020 04/17/2020 8:09 PM MACHINE REPAIRER documented as of this encounter Care Teams Shirt Ironer Supervisor Relationship Specialty Start Date End Date Robert Buitrago MD [address] [place] [address] PCP - General Family Practice 03/14/20 documented as of this encounter
--- OUTSIDE RECORDS SUMMARY | 2025-02-19 08:48 | XMS_ITS | Encounter Summary ---
Author Organization [facility] Address [address] [place] [address] Care Team Providers Care Recoater Name Role Phone Robert Buitrago MD Primary Care Provider [phone] [phone] Encounter Details Date Type Department Care Team (Latest Contact Info) Description 08/08/2003 Outpatient Historical [facility] [address] [place] [address] Sneha Ellis, COMPLIANCE SPECIALIST [address] [place] [address] INSOMNIA NEC (Primary Dx); JOINT PAIN-SHLDER Social History Tobacco Use Types Packs/Day Years Used Date Smoking Tobacco: Never Assessed Comments Unknown Sex and Gender Information Value Date Recorded Sex Assigned at Not on file Legal Sex Female 3:10 AM CANDY MAKER Gender Identity Not on file Sexual Orientation Not on file documented as of this encounter Plan of Treatment Not on file documented as of this encounter Visit Diagnoses Diagnosis Insomnia, unspecified- Primary Pain in joint, shoulder region documented in this encounter Additional Health Concerns Infection Onset Date Last Indicated Resolved Time COVID-19 03/28/2020 03/28/2020 04/17/2020 8:09 PM CANDY MAKER documented as of this encounter Care Teams Recoater Relationship Specialty Start Date End Date Robert Buitrago MD [address] [place] [address] PCP - General Family Practice 03/14/20 documented as of this encounter
--- OUTSIDE RECORDS SUMMARY | 2025-02-19 08:48 | XMS_ITS | Encounter Summary ---
Author Organization [facility] Address [address] [place] [address] Care Team Providers Care Compensation Coordinator Name Role Phone Robert Buitrago MD Primary Care Provider [phone] [phone] Encounter Details Date Type Department Care Team (Latest Contact Info) Description 10/14/2003 Outpatient Historical [facility] [address] [place] [address] Sneha Ellis, EVENT PROMOTER [address] [place] [address] BENIGN JENNI SKIN FACE NEC (Primary Dx) Social History Tobacco Use Types Packs/Day Years Used Date Smoking Tobacco: Never Assessed Comments Unknown Sex and Gender Information Value Date Recorded Sex Assigned at Not on file Legal Sex Female 3:10 AM USER EXPERIENCE DEVELOPER Gender Identity Not on file Sexual Orientation Not on file documented as of this encounter Plan of Treatment Not on file documented as of this encounter Visit Diagnoses Diagnosis Benign neoplasm of skin of other and unspecified parts of face- Primary documented in this encounter Additional Health Concerns Infection Onset Date Last Indicated Resolved Time COVID-19 03/28/2020 03/28/2020 04/17/2020 8:09 PM USER EXPERIENCE DEVELOPER documented as of this encounter Care Teams Compensation Coordinator Relationship Specialty Start Date End Date Robert Buitrago MD [address] [place] [address] PCP - General Family Practice 03/14/20 documented as of this encounter
--- OUTSIDE RECORDS SUMMARY | 2025-02-19 08:48 | XMS_ITS | Encounter Summary ---
Author Organization [facility] Address [address] [place] [address] Care Team Providers Care Clarifier Name Role Phone Robert Buitrago MD Primary Care Provider [phone] [phone] Encounter Details Date Type Department Care Team (Latest Contact Info) Description 01/23/2006 Outpatient Historical [facility] Medicine[address] [phone] Ban Jean MD [address] [place] [address] Routine Gynecological Examination (Primary Dx); Postmenopausal Bleeding Social History Tobacco Use Types Packs/Day Years Used Date Smoking Tobacco: Never Assessed Comments Unknown Sex and Gender Information Value Date Recorded Sex Assigned at Not on file Legal Sex Female 3:10 AM LIBERAL ARTS AND HUMANITIES CHAIR Gender Identity Not on file Sexual Orientation Not on file documented as of this encounter Plan of Treatment Not on file documented as of this encounter Visit Diagnoses Diagnosis Routine gynecological examination- Primary Postmenopausal bleeding documented in this encounter Additional Health Concerns Infection Onset Date Last Indicated Resolved Time COVID-19 03/28/2020 03/28/2020 04/17/2020 8:09 PM LIBERAL ARTS AND HUMANITIES CHAIR documented as of this encounter Care Teams Clarifier Relationship Specialty Start Date End Date Robert Buitrago MD [address] [place] [address] PCP - General Family Practice 03/14/20 documented as of this encounter
--- OUTSIDE RECORDS SUMMARY | 2025-02-19 08:48 | XMS_ITS | Encounter Summary ---
Author Organization [facility] Address [address] [place] [address] Care Team Providers Care Garment Worker Name Role Phone Robert Buitrago MD Primary Care Provider +1 [phone] Encounter Details Date Type Department Care Team (Late st Contact Info) Description 03/05/2006 Outpatient Historical [facility] OBGYN-[address] [address] Rachel Porter MD [address] [place] [address] Postmenopausal Bleeding (Primary Dx) Social History Tobacco Use Types Packs/Day Years Used Date Smoking Tobacco: Never Assessed Comments Unknown Sex and Gender Information Value Date Recorded Sex Assigned at Not on file Legal Sex Female 3:10 AM ORTHOTIST PROSTHETIST Gender Identity Not on file Sexual Orientation Not on file documented as of this encounter Plan of Treatment Not on file documented as of this encounter Visit Diagnoses Diagnosis Postmenopausal bleeding- Primary documented in this encounter Additional Health Concerns Infection Onset Date Last Indicated Resolved Time COVID-19 03/28/2020 03/28/2020 04/17/2020 8:09 PM ORTHOTIST PROSTHETIST documented as of this encounter Care Teams Garment Worker Relationship Specialty Start Date End Date Robert Buitrago MD [address] [place] [address] PCP - General Family Practice 03/14/20 documented as of this encounter
--- OUTSIDE RECORDS SUMMARY | 2025-02-19 08:48 | XMS_ITS | Encounter Summary ---
Author Organization [facility] Address [address] [place] [address] Care Team Providers Care Airplane Technician Name Role Phone Robert Buitargo MD Primary Care Provider [phone] [phone] Encounter Details Date Type Department Care Team (Latest Contact Info) Description 12/23/2005 Outpatient Historical [facility] [address] [place] [address] Sneha Ellis, TEMPER MILL ROLLER [address] [place] [address] Acute Upper Respiratory Infections of Unspecified Site (Primary Dx) Social History Tobacco Use Types Packs/Day Years Used Date Smoking Tobacco: Never Assessed Comments Unknown Sex and Gender Information Value Date Recorded Sex Assigned at Not on file Legal Sex Female 3:10 AM LIFE SKILLS COORDINATOR VOLUNTEER Gender Identity Not on file Sexual Orientation Not on file documented as of this encounter Plan of Treatment Not on file documented as of this encounter Visit Diagnoses Diagnosis Acute upper respiratory infections of unspecified site- Primary documented in this encounter Additional Health Concerns Infection Onset Date Last Indicated Resolved Time COVID-19 03/28/2020 03/28/2020 04/17/2020 8:09 PM LIFE SKILLS COORDINATOR VOLUNTEER documented as of this encounter Care Teams Airplane Technician Relationship Specialty Start Date End Date Robert Buitrago MD [address] [place] [address] PCP - General Family Practice 03/14/20 documented as of this encounter
--- OUTSIDE RECORDS SUMMARY | 2025-02-19 08:48 | XMS_ITS | Encounter Summary ---
Author Organization [facility] Address [address] [place] [address] Care Team Providers Care Psych Assistant Name Role Phone Robert Buitrago MD Primary Care Provider +1 [phone] Encounter Details Date Type Department Care Team (Latest Contact Info) Description 01/24/2003 Outpatient [facility] Breast Center [facility] [address] [place] [address] [facility] [address] [facility] [address] SCREENING MAMM-MAILG NEOPL-OTHER (Primary Dx) Social History Tobacco Use Types Packs/Day Years Used Date Smoking Tobacco: Never Assessed Comments Unknown Sex and Gender Information Value Date Recorded Sex Assigned at Not on file Legal Sex Female 3:10 AM BEACH ATTENDANT Gender Identity Not on file Sexual Orientation Not on file documented as of this encounter Plan of Treatment Not on file documented as of this encounter Visit Diagnoses Diagnosis Other screening mammogram- Primary documented in this encounter Additional Health Concerns Infection Onset Date Last Indicated Resolved Time COVID-19 03/28/2020 03/28/2020 04/17/2020 8:09 PM BEACH ATTENDANT documented as of this encounter Care Teams Psych Assistant Relationship Specialty Start Date End Date Robert Buitrago MD [address] [place] [address] PCP - General Family Practice 03/14/20 documented as of this encounter
--- OUTSIDE RECORDS SUMMARY | 2025-02-19 08:48 | XMS_ITS | Encounter Summary ---
Author Organization [facility] Address [address] [place] [address] Care Team Providers Care Plumbing Manager Name Role Phone Robert Buitrago MD Primary Care Provider +1 -[phone] Encounter Details Date Type Department Care Team (Latest Contact Info) Description 01/30/2006 Outpatient Historical [facility] [address] [phone] Georgia Betts MD NO ADDRESS ON FILE Other Screening Mammogram (Primary Dx) Social History Tobacco Use Types Packs/Day Years Used Date Smoking Tobacco: Never Assessed Comments Unknown Sex and Gender Information Value Date Recorded Sex Assigned at Not on file Legal Sex Female 3:10 AM BEARING INSPECTOR Gender Identity Not on file Sexual Orientation Not on file documented as of this encounter Plan of Treatment Not on file documented as of this encounter Visit Diagnoses Diagnosis Other screening mammogram- Primary documented in this encounter Additional Health Concerns Infection Onset Date Last Indicated Resolved Time COVID-19 03/28/2020 03/28/2020 04/17/2020 8:09 PM BEARING INSPECTOR documented as of this encounter Care Teams Plumbing Manager Relationship Specialty Start Date End Date Robert Buitrago MD [address] [place] [address] PCP - General Family Practice 03/14/20 documented as of this encounter
--- OUTSIDE RECORDS SUMMARY | 2025-02-19 08:48 | XMS_ITS | Encounter Summary ---
Author Organization [facility] Address [address] [place] [address] Care Team Providers Care Architectural Coating Finisher Name Role Phone Robert Buitrago MD Primary Care Provider +1 -[phone] Encounter Details Date Type Department Care Team (Late st Contact Info) Description 10/29/2006 Outpatient [facility] Medicine[address] [address] Anish Monroy PA [address] [place] [phone] Insomnia, Unspecified (Primary Dx); Abdominal Pain, Unspecified Site; Other Malaise and Fatigue Social History Tobacco Use Types Packs/Day Years Used Date Smoking Tobacco: Never Assessed Comments Unknown Sex and Gender Information Value Date Recorded Sex Assigned at Not on file Legal Sex Female 3:10 AM PHARMACEUTICAL PLANT OPERATOR Gender Identity Not on file Sexual Orientation Not on file documented as of this encounter Plan of Treatment Not on file documented as of this encounter Visit Diagnoses Diagnosis Insomnia, unspecified- Primary Abdominal pain, unspecified site Other malaise and fatigue documented in this encounter Additional Health Concerns Infection Onset Date Last Indicated Resolved Time COVID-19 03/28/2020 03/28/2020 04/17/2020 8:09 PM PHARMACEUTICAL PLANT OPERATOR documented as of this encounter Care Teams Architectural Coating Finisher Relationship Specialty Start Date End Date Robert Buitrago [place] [address] PCP - General Family Practice 03/14/20 documented as of this encounter
--- OUTSIDE RECORDS SUMMARY | 2025-02-19 08:48 | XMS_ITS | Encounter Summary ---
Author Organization [facility] Address [address] [place] [address] Care Team Providers Care Duplicating Machine Mechanic Name Role Phone Robert Buitrago MD Primary Care Provider +1 -[phone] Encounter Details Date Type Department Care Team (Late st Contact Info) Description 01/24/2003 Outpatient Historical [facility] Breast [place] [address] [phone] Lucero Hyman MD NO ADDRESS ON FILE SCREENING MAMM-MAILG NEOPL-OTHER (Primary Dx) Social History Tobacco Use Types Packs/Day Years Used Date Smoking Tobacco: Never Assessed Comments Unknown Sex and Gender Information Value Date Recorded Sex Assigned at Not on file Legal Sex Female 3:10 AM ARCHITECTURAL WOOD MODEL MAKER Gender Identity Not on file Sexual Orientation Not on file documented as of this encounter Plan of Treatment Not on file documented as of this encounter Visit Diagnoses Diagnosis Other screening mammogram- Primary documented in this encounter Additional Health Concerns Infection Onset Date Last Indicated Resolved Time COVID-19 03/28/2020 03/28/2020 04/17/2020 8:09 PM ARCHITECTURAL WOOD MODEL MAKER documented as of this encounter Care Teams Duplicating Machine Mechanic Relationship Specialty Start Date End Date Robert Buitrago MD [address] [place] [place] [address] PCP - General Family Practice 03/14/20 documented as of this encounter
--- OUTSIDE RECORDS SUMMARY | 2025-02-19 08:48 | XMS_ITS | Encounter Summary ---
Author Organization [facility] Address [address] [place] [address] Care Team Providers Care Analytic Programmer Name Role Phone Robert Buitrago MD Primary Care Provider +1 -[phone] Encounter Details Date Type Department Care Team (Late st Contact Info) Description 01/23/2006 Outpatient [facility] Medicine[address] [address] Ban Jean MD [address] [place] [address] Social History Tobacco Use Types Packs/Day Years Used Date Smoking Tobacco: Never Assessed Comments Unknown Sex and Gender Information Value Date Recorded Sex Assigned at Not on file Legal Sex Female 3:10 AM EXTRA GANG SUPERVISOR Gender Identity Not on file Sexual Orientation Not on file documented as of this encounter Plan of Treatment Not on file documented as of this encounter Visit Diagnoses Not on filedocumented in this encounter Additional Health Concerns Infection Onset Date Last Indicated Resolved Time COVID-19 03/28/2020 03/28/2020 04/17/2020 8:09 PM EXTRA GANG SUPERVISOR documented as of this encounter Care Teams Analytic Programmer Relationship Specialty Start Date End Date Robert Buitrago MD [address] [place] [address] PCP - General Family Practice 03/14/20 documented as of this encounter
--- OUTSIDE RECORDS SUMMARY | 2025-02-19 08:48 | XMS_ITS | Encounter Summary ---
Author Organization [facility] Address [address] [place] [address] Care Team Providers Care Management Trainee Program Stores Name Role Phone Robert Buitrago MD Primary Care Provider +1 [phone] Encounter Details Date Type Department Care Team (Latest Contact Info) Description 01/30/2006 Outpatient [facility] [address] [place] [address] Ban Jean MD [address] [place] [address] Other Screening Mammogram (Primary Dx) Social History Tobacco Use Types Packs/Day Years Used Date Smoking Tobacco: Never Assessed Comments Unknown Sex and Gender Information Value Date Recorded Sex Assigned at Not on file Legal Sex Female 3:10 AM REGENERATION OPERATOR Gender Identity Not on file Sexual Orientation Not on file documented as of this encounter Plan of Treatment Not on file documented as of this encounter Visit Diagnoses Diagnosis Other screening mammogram- Primary documented in this encounter Additional Health Concerns Infection Onset Date Last Indicated Resolved Time COVID-19 03/28/2020 03/28/2020 04/17/2020 8:09 PM REGENERATION OPERATOR documented as of this encounter Care Teams Management Trainee Program Stores Relationship Specialty Start Date End Date Robert Buitrago MD [address] [place] [address] PCP - General Family Practice 03/14/20 documented as of this encounter
--- OUTSIDE RECORDS SUMMARY | 2025-02-19 08:48 | XMS_ITS | Encounter Summary ---
Author Organization [facility] Address [address] [place] [address] Care Team Providers Care Lead Painter Name Role Phone Robert Buitrago MD Primary Care Provider +1 -[phone] Encounter Details Date Type Department Care Team (Latest Contact Info) Description 01/23/2004 Outpatient Historical [facility] Medicine[address] [phone] Ban Jean MD [address] [place] [address] Gynecologic examination (Primary Dx) Social History Tobacco Use Types Packs/Day Years Used Date Smoking Tobacco: Never Assessed Comments Unknown Sex and Gender Information Value Date Recorded Sex Assigned at Not on file Legal Sex Female 3:10 AM SOUBRETTE Gender Identity Not on file Sexual Orientation Not on file documented as of this encounter Plan of Treatment Not on file documented as of this encounter Visit Diagnoses Diagnosis Gynecologic examination- Primary Gynecological examination documented in this encounter Additional Health Concerns Infection Onset Date Last Indicated Resolved Time COVID-19 03/28/2020 03/28/2020 04/17/2020 8:09 PM SOUBRETTE documented as of this encounter Care Teams Lead Painter Relationship Specialty Start Date End Date Robert Buitrago MD [address] [place] [address] PCP - General Family Practice 03/14/20 documented as of this encounter
--- OUTSIDE RECORDS SUMMARY | 2025-02-19 08:48 | XMS_ITS | Encounter Summary ---
Author Organization [facility] Address [address] [place] [address] Care Team Providers Care Pet Ambassador Name Role Phone Robert Buitrago MD Primary Care Provider +1 -[phone] Encounter Details Date Type Department Care Team (Late st Contact Info) Description 01/26/2004 Outpatient Historical [facility] [place] [address] [phone] Lucero Hyman MD NO ADDRESS ON FILE SCREENING MAMM-MAILG NEOPL-OTHER (Primary Dx) Social History Tobacco Use Types Packs/Day Years Used Date Smoking Tobacco: Never Assessed Comments Unknown Sex and Gender Information Value Date Recorded Sex Assigned at Not on file Legal Sex Female 3:10 AM BARN MANAGER Gender Identity Not on file Sexual Orientation Not on file documented as of this encounter Plan of Treatment Not on file documented as of this encounter Visit Diagnoses Diagnosis Other screening mammogram- Primary documented in this encounter Additional Health Concerns Infection Onset Date Last Indicated Resolved Time COVID-19 03/28/2020 03/28/2020 04/17/2020 8:09 PM BARN MANAGER documented as of this encounter Care Teams Pet Ambassador Relationship Specialty Start Date End Date Robert Buitrago MD [address] [place] [address] PCP - General Family Practice 03/14/20 documented as of this encounter
--- OUTSIDE RECORDS SUMMARY | 2025-02-19 08:48 | XMS_ITS | Encounter Summary ---
Author Organization [facility] Address [address] [place] [address] Care Team Providers Care Neuroscience Director Na Name Role Phone Robert Buitrago MD Primary Care Provider +1 -[phone] Encounter Details Date Type Department Care Team (Latest Contact Info) Description 02/18/2003 Outpatient [facility] [address] [place] [address] Yareli Boucher MD NO ADDRESS ON FILE Mitral valve disorder (Primary Dx); CHEST PAIN NEC Social History Tobacco Use Types Packs/Day Years Used Date Smoking Tobacco: Never Assessed Comments Unknown Sex and Gender Information Value Date Recorded Sex Assigned at Not on file Legal Sex Female 3:10 AM LIFTER/DRIVER Gender Identity Not on file Sexual Orientation Not on file documented as of this encounter Plan of Treatment Not on file documented as of this encounter Visit Diagnoses Diagnosis Mitral valve disorder- Primary Mitral valve disorders Other chest pain documented in this encounter Additional Health Concerns Infection Onset Date Last Indicated Resolved Time COVID-19 03/28/2020 03/28/2020 04/17/2020 8:09 PM LIFTER/DRIVER documented as of this encounter Care Teams Neuroscience Director Na Relationship Specialty Start Date End Date Robert Buitrago MD [address] [place] [address] PCP - General Family Practice 03/14/20 documented as of this encounter
--- OUTSIDE RECORDS SUMMARY | 2025-02-19 08:48 | XMS_ITS | Encounter Summary ---
Author Organization [facility] Address [address] [place] [address] Care Team Providers Care Inspector Toys Name Role Phone Robert Buitrago MD Primary Care Provider +1 -[phone] Encounter Details Date Type Department Care Team (Latest Contact Info) Description 06/27/2005 Outpatient Historical [facility] [address] [phone] Ban Jean MD [address] [place] [address] Esophageal Reflux (Primary Dx); Irritable Bowel Syndrome; Generalized Anxiety Disorder Social History Tobacco Use Types Packs/Day Years Used Date Smoking Tobacco: Never Assessed Comments Unknown Sex and Gender Information Value Date Recorded Sex Assigned at Not on file Legal Sex Female 3:10 AM GENERAL SURGEON Gender Identity Not on file Sexual Orientation Not on file documented as of this encounter Plan of Treatment Not on file documented as of this encounter Visit Diagnoses Diagnosis Esophageal reflux- Primary Irritable bowel syndrome Generalized anxiety disorder documented in this encounter Additional Health Concerns Infection Onset Date Last Indicated Resolved Time COVID-19 03/28/2020 03/28/2020 04/17/2020 8:09 PM GENERAL SURGEON documented as of this encounter Care Teams Inspector Toys Relationship Specialty Start Date End Date Robert Buitrago MD [address] [place] [phone] PCP - General Family Practice 03/14/20 documented as of this encounter
--- OUTSIDE RECORDS SUMMARY | 2025-02-19 08:48 | XMS_ITS | Encounter Summary ---
Author Organization [facility] Address [address] [place] [address] Care Team Providers Care Remediation Technician Name Role Phone Robert Buitrago MD Primary Care Provider +1 -[phone] Encounter Details Date Type Department Care Team (Late st Contact Info) Description 03/05/2006 Outpatient Historical [facility] [address] [place] [address] Rachel Porter MD [address] [place] [phone] Postmenopausal Bleeding (Primary Dx) Social History Tobacco Use Types Packs/Day Years Used Date Smoking Tobacco: Never Assessed Comments Unknown Sex and Gender Information Value Date Recorded Sex Assigned at Not on file Legal Sex Female 3:10 AM CONTROL VALVE TECHNICIAN Gender Identity Not on file Sexual Orientation Not on file documented as of this encounter Plan of Treatment Not on file documented as of this encounter Visit Diagnoses Diagnosis Postmenopausal bleeding- Primary documented in this encounter Additional Health Concerns Infection Onset Date Last Indicated Resolved Time COVID-19 03/28/2020 03/28/2020 04/17/2020 8:09 PM CONTROL VALVE TECHNICIAN documented as of this encounter Care Teams Remediation Technician Relationship Specialty Start Date End Date Robert Buitrago MD [address] [place] [phone] PCP - General Family Practice 03/14/20 documented as of this encounter
--- OUTSIDE RECORDS SUMMARY | 2025-02-19 08:48 | XMS_ITS | Encounter Summary ---
Author Organization [facility] Address [address] [place] [address] Care Team Providers Care Chronometer Adjuster Name Role Phone Robert Buitrago MD Primary Care Provider +1 -[phone] Encounter Details Date Type Department Care Team (Latest Contact Info) Description 01/23/2005 Outpatient Historical [facility] Medicine[address] [address] [facility] [address] [address] ROUTINE INJECTION MOLD TECHNICIAN EXAMINATION (Primary Dx) Social History Tobacco Use Types Packs/Day Years Used Date Smoking Tobacco: Never Assessed Comments Unknown Sex and Gender Information Value Date Recorded Sex Assigned at Not on file Legal Sex Female 3:10 AM RETAIL POS SPECIALIST Gender Identity Not on file Sexual Orientation Not on file documented as of this encounter Plan of Treatment Not on file documented as of this encounter Visit Diagnoses Diagnosis Routine gynecological examination- Primary documented in this encounter Additional Health Concerns Infection Onset Date Last Indicated Resolved Time COVID-19 03/28/2020 03/28/2020 04/17/2020 8:09 PM RETAIL POS SPECIALIST documented as of this encounter Care Teams Chronometer Adjuster Relationship Specialty Start Date End Date Robert Buitrago MD [address] [place] [address] PCP - General Family Practice 03/14/20 documented as of this encounter
--- OUTSIDE RECORDS SUMMARY | 2025-02-19 08:48 | XMS_ITS | Encounter Summary ---
Author Organization [facility] Address [address] [place] [address] Care Team Providers Care Cover Stripper Name Role Phone Robert Buitrago MD Primary Care Provider +1 -[phone] Encounter Details Date Type Department Care Team (Latest Contact Info) Description 06/14/2002 Outpatient Historical [facility] Family Medicine [address] [phone] Maritza Mccain MD ABDOMINAL PAIN UNSPEC SITE (Primary Dx) Social History Tobacco Use Types Packs/Day Years Used Date Smoking Tobacco: Never Assessed Comments Unknown Sex and Gender Information Value Date Recorded Sex Assigned at Not on file Legal Sex Female 3:10 AM REGIONAL DIRECTOR OF ADMISSIONS Gender Identity Not on file Sexual Orientation Not on file documented as of this encounter Plan of Treatment Not on file documented as of this encounter Visit Diagnoses Diagnosis Abdominal pain, unspecified site- Primary documented in this encounter Additional Health Concerns Infection Onset Date Last Indicated Resolved Time COVID-19 03/28/2020 03/28/2020 04/17/2020 8:09 PM REGIONAL DIRECTOR OF ADMISSIONS documented as of this encounter Care Teams Cover Stripper Relationship Specialty Start Date End Date Robert Buitrago MD [address] [place] [address] PCP - General Family Practice 03/14/20 documented as of this encounter
--- OUTSIDE RECORDS SUMMARY | 2025-02-19 08:48 | XMS_ITS | Encounter Summary ---
Author Organization [facility] Address [address] [place] [address] Care Team Providers Care Landscaping Manager Name Role Phone Robert Buitrago MD Primary Care Provider +1 -[phone] Encounter Details Date Type Department Care Team (Latest Contact Info) Description 01/26/2004 Outpatient [facility] [address] [place] [address] Ban Jean MD [address] [place] [address] SCREENING MAMM-MAILG NEOPL-OTHER (Primary Dx) Social History Tobacco Use Types Packs/Day Years Used Date Smoking Tobacco: Never Assessed Comments Unknown Sex and Gender Information Value Date Recorded Sex Assigned at Not on file Legal Sex Female 3:10 AM DENTAL INTERN Gender Identity Not on file Sexual Orientation Not on file documented as of this encounter Plan of Treatment Not on file documented as of this encounter Visit Diagnoses Diagnosis Other screening mammogram- Primary documented in this encounter Additional Health Concerns Infection Onset Date Last Indicated Resolved Time COVID-19 03/28/2020 03/28/2020 04/17/2020 8:09 PM DENTAL INTERN documented as of this encounter Care Teams Landscaping Manager Relationship Specialty Start Date End Date Robert Buitrago MD [address] [place] [address] PCP - General Family Practice 03/14/20 documented as of this encounter
--- OUTSIDE RECORDS SUMMARY | 2025-02-19 08:48 | XMS_ITS | Encounter Summary ---
Author Organization [facility] Address [address] [place] [address] Care Team Providers Care Tour Counselor Name Role Phone Robert Buitrago MD Primary Care Provider +1 -[phone] Encounter Details Date Type Department Care Team (Late st Contact Info) Description 01/25/2005 Outpatient Historical [facility] Breast [place] [address] [phone] Lucero Hyman MD NO ADDRESS ON FILE SCREENING MAMM-MAILG NEOPL NEC (Primary Dx) Social History Tobacco Use Types Packs/Day Years Used Date Smoking Tobacco: Never Assessed Comments Unknown Sex and Gender Information Value Date Recorded Sex Assigned at Not on file Legal Sex Female 3:10 AM GOSPEL WORKER Gender Identity Not on file Sexual Orientation Not on file documented as of this encounter Plan of Treatment Not on file documented as of this encounter Visit Diagnoses Diagnosis Other screening mammogram- Primary documented in this encounter Additional Health Concerns Infection Onset Date Last Indicated Resolved Time COVID-19 03/28/2020 03/28/2020 04/17/2020 8:09 PM GOSPEL WORKER documented as of this encounter Care Teams Tour Counselor Relationship Specialty Start Date End Date Robert Buitrago MD [address] [place] [address] PCP - General Family Practice 03/14/20 documented as of this encounter
--- OUTSIDE RECORDS SUMMARY | 2025-02-19 08:48 | XMS_ITS | Encounter Summary ---
Author Organization [facility] Address [address] [place] [address] Care Team Providers Care Llama Farmer Name Role Phone Robert Buitrago MD Primary Care Provider +1 -[phone] Encounter Details Date Type Department Care Team ([facility]) Description 02/19/2003 Outpatient Historical [facility] FY06 Non-Staff, Physician NO ADDRESS ON FILE Social History Tobacco Use Types Packs/Day Years Used Date Smoking Tobacco: Never Assessed Comments Unknown Sex and Gender Information Value Date Recorded Sex Assigned at Not on file Legal Sex Female 3:10 AM EMERGENCY SERVICES PROFESSIONAL Gender Identity Not on file Sexual Orientation Not on file documented as of this encounter Plan of Treatment Not on file documented as of this encounter Visit Diagnoses Not on filedocumented in this encounter Additional Health Concerns Infection Onset Date Last Indicated Resolved Time COVID-19 03/28/2020 03/28/2020 04/17/2020 8:09 PM EMERGENCY SERVICES PROFESSIONAL documented as of this encounter Care Teams Llama Farmer Relationship Specialty Start Date End Date Robert Buitrago MD [address] [place] [address] PCP - General Family Practice 03/14/20 documented as of this encounter
--- OUTSIDE RECORDS SUMMARY | 2025-02-19 08:48 | XMS_ITS | Encounter Summary ---
Author Organization [facility] Address [address] [place] [address] Care Team Providers Care Metal Sprayer Name Role Phone Robert Buitrago MD Primary Care Provider +1 -[phone] Encounter Details Date Type Department Care Team (Latest Contact Info) Description 12/31/2002 Outpatient Historical [facility] [address] [address] Sundeep Slater MD [address] [address] Gynecologic examination (Primary Dx); ANXIETY STATE NOS; JOINT PAIN-SHLDER Social History Tobacco Use Types Packs/Day Years Used Date Smoking Tobacco: Never Assessed Comments Unknown Sex and Gender Information Value Date Recorded Sex Assigned at Not on file Legal Sex Female 3:10 AM CHOCOLATE MOLDER Gender Identity Not on file Sexual Orientation Not on file documented as of this encounter Plan of Treatment Not on file documented as of this encounter Visit Diagnoses Diagnosis Gynecologic examination- Primary Gynecological examination Anxiety state, unspecified Pain in joint, shoulder region documented in this encounter Additional Health Concerns Infection Onset Date Last Indicated Resolved Time COVID-19 03/28/2020 03/28/2020 04/17/2020 8:09 PM CHOCOLATE MOLDER documented as of this encounter Care Teams Metal Sprayer Relationship Specialty Start Date End Date Robert Buitrago MD [address] [place] [phone] PCP - General Family Practice 03/14/20 documented as of this encounter
--- OUTSIDE RECORDS SUMMARY | 2025-02-19 08:48 | XMS_ITS | Encounter Summary ---
Author Organization [facility] Address [address] [place] [address] Care Team Providers Care Driver/Merchandiser Name Role Phone Robert Buitrago MD Primary Care Provider +1 [phone] Encounter Details Date Type Department Care Team (Latest Contact Info) Description 07/29/2005 Outpatient Historical [facility] [address] Ban Jean MD [address] [place] [address] Esophageal Reflux (Primary Dx) Social History Tobacco Use Types Packs/Day Years Used Date Smoking Tobacco: Never Assessed Comments Unknown Sex and Gender Information Value Date Recorded Sex Assigned at Not on file Legal Sex Female 3:10 AM TRACK INSPECTING SUPERVISOR Gender Identity Not on file Sexual Orientation Not on file documented as of this encounter Plan of Treatment Not on file documented as of this encounter Visit Diagnoses Diagnosis Esophageal reflux- Primary documented in this encounter Additional Health Concerns Infection Onset Date Last Indicated Resolved Time COVID-19 03/28/2020 03/28/2020 04/17/2020 8:09 PM TRACK INSPECTING SUPERVISOR documented as of this encounter Care Teams Driver/Merchandiser Relationship Specialty Start Date End Date Robert Buitrago MD [address] [place] [address] PCP - General Family Practice 03/14/20 documented as of this encounter
--- OUTSIDE RECORDS SUMMARY | 2025-02-19 08:48 | XMS_ITS | Encounter Summary ---
Author Organization [facility] Address [address] [place] [address] Care Team Providers Care Geospatial Information Technologist Name Role Phone Robert Buitrago MD Primary Care Provider +1 [phone] Encounter Details Date Type Department Care Team (Latest Contact Info) Description 01/25/2005 Outpatient [facility] [address] [place] [address] Avery Murguia MD [address] [address] SCREENING MAMM-MAILG NEOPL NEC (Primary Dx) Social History Tobacco Use Types Packs/Day Years Used Date Smoking Tobacco: Never Assessed Comments Unknown Sex and Gender Information Value Date Recorded Sex Assigned at Not on file Legal Sex Female 3:10 AM MANAGER RECOVERY Gender Identity Not on file Sexual Orientation Not on file documented as of this encounter Plan of Treatment Not on file documented as of this encounter Visit Diagnoses Diagnosis Other screening mammogram- Primary documented in this encounter Additional Health Concerns Infection Onset Date Last Indicated Resolved Time COVID-19 03/28/2020 03/28/2020 04/17/2020 8:09 PM MANAGER RECOVERY documented as of this encounter Care Teams Geospatial Information Technologist Relationship Specialty Start Date End Date Robert Buitrago MD [address] [place] [address] PCP - General Family Practice 03/14/20 documented as of this encounter
--- OUTSIDE RECORDS SUMMARY | 2025-02-19 08:48 | XMS_ITS | Clinical Summary ---
Author Organization [facility] Address [address] [place] [address] Care Team Providers Care Plastic Installer Name Role Phone Robert Buitrago MD Primary Care Provider +1 [phone] Allergies Active Allergy Reactions Criticality Noted Date Comments Fexofenadine Anaphylaxis High 10/26/2008 Gadolinium-Containing Contrast Media Rash Low 08/20/2017 Gluten Diarrhea,Nausea and Vomiting Low 11/17/2009 Predisol 50 Nausea and Vomiting Low 09/23/2018 Sulfa (Sulfonamide Antibiotics) Nausea and Vomiting Low 01/21/2008 Medications vits A,C,E/zinc/coppe r (VISION-AMOS PRESERVE ORAL) Take by mouth. Active fluticasone propionate (FLONASE) 50 mcg/spray [place], Suspension nasal inhalerIndicatio ns:Acute otitis media, unspecified otitis media type Administer 2 Sprays in each nostril daily. 16 Gram 1 0 Active cetirizine (ZyrTEC) 10 mg tabletIndication s:Recurrent acute allergic otitis media of both ears Take 1 Tablet (10 mg) by mouth daily. 30 Tablet 1 0 Active sertraline (ZOLOFT) 25 mg tabletIndication s:Recurrent major depressive disorder, in partial remission Take 1 Tablet (25 mg) by mouth daily. 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 09/18/2010 Hyperlipidemia 01/21/2008 Immunizations Immunization Administration Dates Next Due (Antenova)(12 YR UP) COVID-19 VACCINE - EMERGENCY USE AUTHORIZATION, MRNA, [id number](PF) 30 MCG/0.3 ML IM SUSP 07/13/2020,06/20/2020 Dt Dtp Dtap Vaccine 10/25/1999 Family History Medical History Relation Name Comments Stroke Brother Breast Cancer Maternal Grandmother Diabetes Mother Heart Disease Mother Hypertension Mother Colon Cancer Neg Hx Relation Name Status Comments Brother Maternal Grandmother Mother Social History Tobacco Use Types Packs/Day Years Used Date Smoking Tobacco: Former Cigarettes 1 25 0 12/10/1982 - 12/11/2007 Smokeless Tobacco: Never Comments:quit 2 years ago Alcohol Use Standard Drinks/Week Comments No 0 (1 standard drink = 0.6 oz pur e alcohol) Comments No Sex and Gender Information Value Date Recorded Sex Assigned at Not on file Legal Sex Female 3:10 AM FORMING OPERATOR Gender Identity Not on file Sexual Orientation Not on file Occupation Industry Job Start Date Job End Date Not on file Not on file Not on file Not on file Last Filed Vital Signs Vital Sign Reading Time Taken Comments Blood Pressure 128/70 05/16/2020 1:42 PM FORMING OPERATOR Pulse 82 05/16/2020 1:42 PM FORMING OPERATOR Temperature 36.9 C (98.5 F) 05/16/2020 1:42 PM FORMING OPERATOR Respiratory Rate 18 05/16/2020 1:42 PM FORMING OPERATOR Oxygen Saturation 97% 05/16/2020 1:42 PM FORMING OPERATOR Inhaled Oxygen Concentration - - Weight 72.6 kg (160 lb) 05/16/2020 1:42 PM FORMING OPERATOR Height 165.1 cm (5' 5 ) 05/16/2020 1:42 PM FORMING OPERATOR Body Mass Index 26.63 05/16/2020 1:42 PM FORMING OPERATOR Plan of Treatment Health Maintenance Due Date Last Done Comments PNEUMOCOCCAL VACCINE 50+ YEA RS (1 of 2 - PCV) 1970 FIT-DNA Q 3 years 1996 Flex Sig/CT Colonography Q 5 years 1996 ZOSTER VACCINE (1 of 2) 2001 DTAP/TDAP/TD VACCINES (2 - Tdap) 10/24/2009 10/25/19 00 FIT/FOBT Q 1 year 03/21/2018 03/21/2017 OSTEOPOROSIS SCREENING 06/19/2021 06/19/2016, 2016 COLORECTAL SCREENING 07/28/2023 07/27/2018, 04/30/2017, 12/31/2012, Additional history exists Colorectal Cancer Screening 07/28/2023 BREAST CANCER SCREENING 08/31/2023 08/31/19 23, 07/08/2018, 07/08/2018, Additional history exists INFLUENZA VACCINE (#1) 2024 03/14/2020 COVID-19 Vaccine (3 - 2024-2 6 season) 2024 07/13/2020, 06/20/2020 RSV VACCINE (60+ or ) (1 - 1-dose 75+ series) 2026 Preventative Visit- Commercial Completed 0 12/24/2024, 12/26/2023, 06/05/2016, Additional history exists Medical Devices Explanted Type Area Bending Shed Worker Device Identifier Shelf Expiration Date Model / Serial / Lot . Explanted:Qty: 1 on 12/14/2010 at [facility] Mammary Left: Breast Description:[employer] Gel Implant. Ruptured. Implanted by Dr. Puga He has been retired many years. Implant thrown away as it does not qualify under the guidelines per Courtney Jarvis . Explanted:Qty: 1 on 12/14/2010 at [facility] Right: Breast Description:Right Capsule of Brest Post Augmentation. Not Ruptured. Implanted by Dr. Puga several years ago Implant thrown away per Courtney Jarvis as it is several years old and does qualify under the guidelines set forth. Procedures Procedure Name Priority Date/Time Associated Diagnosis Comments ENDOSCOPY, COLON, DIAGNOSTIC Routine 07/27/2018 MAMMO SCREEN BILAT W OR WO CAD Routine 07/08/2018 Screening for breast cancer POC OCCULT BLOOD UP TO 3 CARDS Routine 03/21/2017 11:51 AM FORMING OPERATOR Rectal bleeding XR DEXA BONE DENSITY AXIAL 1 OR MORE SITES Routine 06/19/2016 Postmenopausal from Last 3 Months or Most Recently Relevant to Health Maintenance Results * ENDOSCOPY, COLON, DIAGNOSTIC (07/27/2018) us Abstract Spg Provider GI PROCEDURE ORDERABLES Fi nal Result * MAMMO SCREEN BILAT W OR WO CAD (07/08/2018) Anatomical Region Laterality Modality Breast Bilateral Mammography Sneha Peterson Wheeler ENTRY OPERATOR MAMMO ORDERABLES Final Resu lt * (ABNORMAL) POC OCCULT BLOOD UP TO 3 CARDS (03/21/2017 11:51 AM FORMING OPERATOR) OCCULT BLOOD 1 CARD POC Negative Negative [facility] OCCULT BLOOD 2 CARD POC Negative Negative [facility] OCCULT BLOOD 3 CARD POC Positive(A) Negative [facility] INTERNAL KIT QC Pass Pass [facility] CARD LOT NUMBER POC [id number] [facility] CARD EXPIRATION DATE POC 08/30 [facility] DEVELOPER LOT NUMBER POC [id number] [facility] DEVELOPER EXPIRATION DATE POC 05/2019 [facility] Stool STOOL SPECIMEN / Unknown 03/21/2017 11:51 AM FORMING OPERATOR Sneha Peterson Caleb ENTRY OPERATOR POINT OF CARE TESTING Final Result Performing Organization Address City/State/[facility] Co de Phone Number [facility] CLIA# [id number] [address] [place] [address] * XR DEXA BONE DENSITY AXIAL 1 OR MORE SITES (06/19/2016) Anatomical Region Laterality Modality Other Sneha Peterson Wheeler ENTRY OPERATOR DIAGNOSTIC IMAGING ORDERABL ES Final Result from Last 3 Months or Most Recently Relevant to Health Maintenance Insurance [place] [address] ZACH GONZALEZ [id number] Advance Directives For more information, please contact: [phone] * Full Code (Latest Code Status on File) Date Activated Date Inactivated Comments 12/14/2010 7:20 AM 12/15/2010 2:01 AM * Full Code Date Activated Date Inactivated Comments 11/20/2009 7:21 AM 11/22/2009 1:29 PM * Full Code Date Activated Date Inactivated Comments 11/20/2009 7:11 AM 11/20/2009 7:21 AM * Full Code Date Activated Date Inactivated Comments 11/20/2009 5:54 AM 11/20/2009 7:11 AM Care Teams Plastic Installer Relationship Specialty Start Date End Date Robert Buitrago MD [address] [place] [address] PCP - General Family Practice 03/14/20
--- OUTSIDE RECORDS SUMMARY | 2025-02-19 08:48 | XMS_ITS | Encounter Summary ---
Author Organization [facility] Address [address] [place] [address] Care Team Providers Care Operation Shift Supervisor Name Role Phone Robert Buitrago MD Primary Care Provider +1 [phone] Encounter Details Date Type Department Care Team (Latest Contact Info) Description 07/21/2002 Outpatient Historical [facility] [address] [place] [address] Avery Murguia MD [address] [address] Periapical abscess (Primary Dx) Social History Tobacco Use Types Packs/Day Years Used Date Smoking Tobacco: Never Assessed Comments Unknown Sex and Gender Information Value Date Recorded Sex Assigned at Not on file Legal Sex Female 3:10 AM PLAYGROUND ATTENDANT Gender Identity Not on file Sexual Orientation Not on file documented as of this encounter Plan of Treatment Not on file documented as of this encounter Visit Diagnoses Diagnosis Periapical abscess- Primary Periapical abscess without sinus documented in this encounter Additional Health Concerns Infection Onset Date Last Indicated Resolved Time COVID-19 03/28/2020 03/28/2020 04/17/2020 8:09 PM PLAYGROUND ATTENDANT documented as of this encounter Care Teams Operation Shift Supervisor Relationship Specialty Start Date End Date Robert Buitrago MD [address] [place] [address] PCP - General Family Practice 03/14/20 documented as of this encounter
--- OUTSIDE RECORDS SUMMARY | 2025-02-19 08:48 | XMS_ITS | Encounter Summary ---
Author Organization [facility] Address [address] [place] [address] Care Team Providers Care Assistant Laboratory Director Name Role Phone Robert Buitrago MD Primary Care Provider +1 [phone] Encounter Details Date Type Department Care Team (Late st Contact Info) Description 12/31/2002 Outpatient [facility] Family [address] [address] [facility] [address] [address] Social History Tobacco Use Types Packs/Day Years Used Date Smoking Tobacco: Never Assessed Comments Unknown Sex and Gender Information Value Date Recorded Sex Assigned at Not on file Legal Sex Female 3:10 AM HARD METALS ENGRAVER HAND Gender Identity Not on file Sexual Orientation Not on file documented as of this encounter Plan of Treatment Not on file documented as of this encounter Visit Diagnoses Not on filedocumented in this encounter Additional Health Concerns Infection Onset Date Last Indicated Resolved Time COVID-19 03/28/2020 03/28/2020 04/17/2020 8:09 PM HARD METALS ENGRAVER HAND documented as of this encounter Care Teams Assistant Laboratory Director Relationship Specialty Start Date End Date Robert Buitrago MD [address] [place] [address] PCP - General Family Practice 03/14/20 documented as of this encounter
--- OUTSIDE RECORDS SUMMARY | 2025-02-19 08:49 | XMS_ITS | Encounter Summary ---
Author Organization [facility] Address [address] [place] [address] Care Team Providers Care Seed Cleaning Machine Operator Name Role Phone Robert Buitrago MD Primary Care Provider +1 -[phone] Encounter Details Date Type Department Care Team (Latest Contact Info) Description 04/12/2002 Outpatient Historical [facility] [address] [place] [address] Avery Murguia MD [address] [address] REFLUX ESOPHAGITIS (Primary Dx) Social History Tobacco Use Types Packs/Day Years Used Date Smoking Tobacco: Never Assessed Comments Unknown Sex and Gender Information Value Date Recorded Sex Assigned at Not on file Legal Sex Female 3:10 AM MOLDER FITTING Gender Identity Not on file Sexual Orientation Not on file documented as of this encounter Plan of Treatment Not on file documented as of this encounter Visit Diagnoses Diagnosis Reflux esophagitis- Primary documented in this encounter Additional Health Concerns Infection Onset Date Last Indicated Resolved Time COVID-19 03/28/2020 03/28/2020 04/17/2020 8:09 PM MOLDER FITTING documented as of this encounter Care Teams Seed Cleaning Machine Operator Relationship Specialty Start Date End Date Robert Buitrago MD [address] [place] [address] PCP - General Family Practice 03/14/20 documented as of this encounter
--- OUTSIDE RECORDS SUMMARY | 2025-02-19 08:49 | XMS_ITS | Encounter Summary ---
Author Organization [facility] Address [address] [place] [address] Care Team Providers Care Cotton Stripper Name Role Phone Robert Buitrago MD Primary Care Provider +1 [phone] Encounter Details Date Type Department Care Team (Latest Contact Info) Description 07/20/2001 Outpatient Historical [facility] [address] [place] [address] Scott Sheets MD [address] [address] TINNITUS NOS (Primary Dx) Social History Tobacco Use Types Packs/Day Years Used Date Smoking Tobacco: Never Assessed Comments Unknown Sex and Gender Information Value Date Recorded Sex Assigned at Not on file Legal Sex Female 3:10 AM PIPE ORGAN TECHNICIAN Gender Identity Not on file Sexual Orientation Not on file documented as of this encounter Plan of Treatment Not on file documented as of this encounter Visit Diagnoses Diagnosis Unspecified tinnitus- Primary documented in this encounter Additional Health Concerns Infection Onset Date Last Indicated Resolved Time COVID-19 03/28/2020 03/28/2020 04/17/2020 8:09 PM PIPE ORGAN TECHNICIAN documented as of this encounter Care Teams Cotton Stripper Relationship Specialty Start Date End Date Robert Buitrago MD [address] [place] [address] PCP - General Family Practice 03/14/20 documented as of this encounter
--- OUTSIDE RECORDS SUMMARY | 2025-02-19 08:49 | XMS_ITS | Encounter Summary ---
Author Organization [facility] Address [address] [place] [address] Care Team Providers Care Goal Umpire Name Role Phone Robert Buitrago MD Primary Care Provider +1 [phone] Encounter Details Date Type Department Care Team (Latest Contact Info) Description 08/07/2001 Outpatient [facility] [address] [place] [address] Sarabjit Alvarez DO NO ADDRESS ON FILE BACKACHE NOS (Primary Dx) Social History Tobacco Use Types Packs/Day Years Used Date Smoking Tobacco: Never Assessed Comments Unknown Sex and Gender Information Value Date Recorded Sex Assigned at Not on file Legal Sex Female 3:10 AM CCO Gender Identity Not on file Sexual Orientation Not on file documented as of this encounter Plan of Treatment Not on file documented as of this encounter Visit Diagnoses Diagnosis Backache, unspecified- Primary documented in this encounter Additional Health Concerns Infection Onset Date Last Indicated Resolved Time COVID-19 03/28/2020 03/28/2020 04/17/2020 8:09 PM CCO documented as of this encounter Care Teams Goal Umpire Relationship Specialty Start Date End Date Robert Buitrago MD [address] [place] [address] PCP - General Family Practice 03/14/20 documented as of this encounter
--- OUTSIDE RECORDS SUMMARY | 2025-02-19 08:49 | XMS_ITS | Encounter Summary ---
Author Organization [facility] Address [address] [place] [address] Care Team Providers Care Blanket Maker Name Role Phone Robert Buitrago MD Primary Care Provider +1 -[phone] Encounter Details Date Type Department Care Team (Late st Contact Info) Description 04/12/2002 Outpatient [facility] [address] [place] [address] Sneha Ellis, SANDER WOODEN PENCILS [address] [place] [address] Social History Tobacco Use Types Packs/Day Years Used Date Smoking Tobacco: Never Assessed Comments Unknown Sex and Gender Information Value Date Recorded Sex Assigned at Not on file Legal Sex Female 3:10 AM BRANCH SERVICE REPRESENTATIVE Gender Identity Not on file Sexual Orientation Not on file documented as of this encounter Plan of Treatment Not on file documented as of this encounter Visit Diagnoses Not on filedocumented in this encounter Additional Health Concerns Infection Onset Date Last Indicated Resolved Time COVID-19 03/28/2020 03/28/2020 04/17/2020 8:09 PM BRANCH SERVICE REPRESENTATIVE documented as of this encounter Care Teams Blanket Maker Relationship Specialty Start Date End Date Robert Buitrago MD [address] [place] [address] PCP - General Family Practice 03/14/20 documented as of this encounter
--- OUTSIDE RECORDS SUMMARY | 2025-02-19 08:49 | XMS_ITS | Encounter Summary ---
Author Organization [facility] Address [address] [place] [address] Care Team Providers Care Jinrikisha Driver Name Role Phone Robert Buitrago MD Primary Care Provider +1 -[phone] Encounter Details Date Type Department Care Team (Latest Contact Info) Description 03/05/2002 Outpatient Historical [facility] [address] [place] [address] Avery Murguia MD [address] [address] MENOPAUSAL DISORDER NEC (Primary Dx); OTHER CONSTIPATION Social History Tobacco Use Types Packs/Day Years Used Date Smoking Tobacco: Never Assessed Comments Unknown Sex and Gender Information Value Date Recorded Sex Assigned at Not on file Legal Sex Female 3:10 AM AUTOMATIC SPINNING LATHE OPERATOR Gender Identity Not on file Sexual Orientation Not on file documented as of this encounter Plan of Treatment Not on file documented as of this encounter Visit Diagnoses Diagnosis Other specified menopausal and postmenopausal disorder- Primary Other constipation documented in this encounter Additional Health Concerns Infection Onset Date Last Indicated Resolved Time COVID-19 03/28/2020 03/28/2020 04/17/2020 8:09 PM AUTOMATIC SPINNING LATHE OPERATOR documented as of this encounter Care Teams Jinrikisha Driver Relationship Specialty Start Date End Date Robert Buitrago MD [address] [place] [address] PCP - General Family Practice 03/14/20 documented as of this encounter
--- OUTSIDE RECORDS SUMMARY | 2025-02-19 08:49 | XMS_ITS | Encounter Summary ---
Author Organization [facility] Address [address] [place] [address] Care Team Providers Care Manager Fleet Name Role Phone Robert Buitrago MD Primary Care Provider +1 [phone] Encounter Details Date Type Department Care Team (Latest Contact Info) Description 05/17/2002 Outpatient Historical [facility] Family Medicine [address] [phone] Maritza Mccain MD ABDOMINAL PAIN UNSPEC SITE (Primary Dx) Social History Tobacco Use Types Packs/Day Years Used Date Smoking Tobacco: Never Assessed Comments Unknown Sex and Gender Information Value Date Recorded Sex Assigned at Not on file Legal Sex Female 3:10 AM GUARD RAIL INSTALLER Gender Identity Not on file Sexual Orientation Not on file documented as of this encounter Plan of Treatment Not on file documented as of this encounter Visit Diagnoses Diagnosis Abdominal pain, unspecified site- Primary documented in this encounter Additional Health Concerns Infection Onset Date Last Indicated Resolved Time COVID-19 03/28/2020 03/28/2020 04/17/2020 8:09 PM GUARD RAIL INSTALLER documented as of this encounter Care Teams Manager Fleet Relationship Specialty Start Date End Date Robert Buitrago MD [address] [place] [address] PCP - General Family Practice 03/14/20 documented as of this encounter
--- OUTSIDE RECORDS SUMMARY | 2025-02-19 08:49 | XMS_ITS | Encounter Summary ---
Author Organization [facility] Address [address] [place] [address] Care Team Providers Care Cds Sales Advisor Name Role Phone Robert Butirago MD Primary Care Provider +1 [phone] Encounter Details Date Type Department Care Team (Latest Contact Info) Description 06/01/[address] [facility] Family Medicine [address] [phone] Maritza Mccain MD ABDOMINAL PAIN EPIGASTRIC (Primary Dx); SCREENING MAL NEOP-COLON Social History Tobacco Use Types Packs/Day Years Used Date Smoking Tobacco: Never Assessed Comments Unknown Sex and Gender Information Value Date Recorded Sex Assigned at Not on file Legal Sex Female 3:10 AM TAPE CONTROL SKIN OR SPAR MILL OPERATOR Gender Identity Not on file Sexual Orientation Not on file documented as of this encounter Plan of Treatment Not on file documented as of this encounter Visit Diagnoses Diagnosis Abdominal pain, epigastric- Primary Special screening for malignant neoplasms, colon documented in this encounter Additional Health Concerns Infection Onset Date Last Indicated Resolved Time COVID-19 03/28/2020 03/28/2020 04/17/2020 8:09 PM TAPE CONTROL SKIN OR SPAR MILL OPERATOR documented as of this encounter Care Teams Cds Sales Advisor Relationship Specialty Start Date End Date Robert Buitrago MD [address] [place] [address] PCP - General Family Practice 03/14/20 documented as of this encounter
--- OUTSIDE RECORDS SUMMARY | 2025-02-19 08:49 | XMS_ITS | Encounter Summary ---
Author Organization [facility] Address [address] [place] [address] Care Team Providers Care Dental Hygienist Name Role Phone Robert Buitrago MD Primary Care Provider [phone] Encounter Details Date Type Department Care Team (Latest Contact Info) Description 07/02/2001 Outpatient Historical [facility] [address] [phone] Sundeep Slater MD [address] [address] Gynecologic examination (Primary Dx) Social History Tobacco Use Types Packs/Day Years Used Date Smoking Tobacco: Never Assessed Comments Unknown Sex and Gender Information Value Date Recorded Sex Assigned at Not on file Legal Sex Female 3:10 AM HONING MACHINE SET UP OPERATOR TOOL Gender Identity Not on file Sexual Orientation Not on file documented as of this encounter Plan of Treatment Not on file documented as of this encounter Visit Diagnoses Diagnosis Gynecologic examination- Primary Gynecological examination documented in this encounter Additional Health Concerns Infection Onset Date Last Indicated Resolved Time COVID-19 03/28/2020 03/28/2020 04/17/2020 8:09 PM HONING MACHINE SET UP OPERATOR TOOL documented as of this encounter Care Teams Dental Hygienist Relationship Specialty Start Date End Date Robert Buitrago MD [address] [place] [address] PCP - General Family Practice 03/14/20 documented as of this encounter
--- OUTSIDE RECORDS SUMMARY | 2025-02-19 08:49 | XMS_ITS | Encounter Summary ---
Author Organization [facility] Address [address] [place] [address] Care Team Providers Care Chemical Engineering Technologist Name Role Phone Robert Buitrago MD Primary Care Provider [phone] Encounter Details Date Type Department Care Team (Late st Contact Info) Description 07/20/2001 Outpatient Historical [facility] Ear, Nose and Throat [address] [place] [phone] Social History Tobacco Use Types Packs/Day Years Used Date Smoking Tobacco: Never Assessed Comments Unknown Sex and Gender Information Value Date Recorded Sex Assigned at Not on file Legal Sex Female 3:10 AM SENIOR COPYWRITER Gender Identity Not on file Sexual Orientation Not on file documented as of this encounter Plan of Treatment Not on file documented as of this encounter Visit Diagnoses Not on filedocumented in this encounter Additional Health Concerns Infection Onset Date Last Indicated Resolved Time COVID-19 03/28/2020 03/28/2020 04/17/2020 8:09 PM SENIOR COPYWRITER documented as of this encounter Care Teams Chemical Engineering Technologist Relationship Specialty Start Date End Date Robert Buitrago MD [address] [place] [address] PCP - General Family Practice 03/14/20 documented as of this encounter
--- OUTSIDE RECORDS SUMMARY | 2025-02-19 08:49 | XMS_ITS | Encounter Summary ---
Author Organization [facility] Address [address] [place] [address] Care Team Providers Care Clasp Machine Operator Name Role Phone Robert Buitrago MD Primary Care Provider [phone] Encounter Details Date Type Department Care Team (Latest Contact Info) Description 04/28/2002 Outpatient Historical [facility] General Surgery [address] [address] [address] [place] [address] [place] [address] [facility] [place] [address] [place] [address] ABDOMINAL PAIN EPIGASTRIC (Primary Dx) Social History Tobacco Use Types Packs/Day Years Used Date Smoking Tobacco: Never Assessed Comments Unknown Sex and Gender Information Value Date Recorded Sex Assigned at Not on file Legal Sex Female 3:10 AM CODING SPECIALIST HOME HEALTH Gender Identity Not on file Sexual Orientation Not on file documented as of this encounter Plan of Treatment Not on file documented as of this encounter Visit Diagnoses Diagnosis Abdominal pain, epigastric- Primary documented in this encounter Additional Health Concerns Infection Onset Date Last Indicated Resolved Time COVID-19 03/28/2020 03/28/2020 04/17/2020 8:09 PM CODING SPECIALIST HOME HEALTH documented as of this encounter Care Teams Clasp Machine Operator Relationship Specialty Start Date End Date Robert Buitrago MD [address] [place] [address] PCP - General Family Practice 03/14/20 documented as of this encounter
[2025-02-19 08:50] VITALS: BP 181/104; PULSE 77; RESP 18; TEMP 36.7; O2SAT 96; BMI 25.8
--- NOTE | 2025-02-19 09:06 | ED_ITS ---
HPI - Arrhythmia/Palpitations 2 General: Chief Complaint: Arrhythmia/Palpitations Stated Complaint: heart beating funny nearly passed out Time Seen by Provider: 02/19/25 08:41 History of Present Illness: 74-year-old female past medical history significant for paroxysmal atrial fibrillation on Pradaxa,Former history of extensive smoking quit greater than 15 years ago, hyperlipidemia, no history of diabetes or coronary artery disease known to her, presenting to the emergency department this morning woke up feeling fine around 6 AM, around 7 AM after having some toast and a coffee which is her usual breakfast felt acute onset of palpitations and dizziness and clamminess that caused her to almost pass out, reports that this symptom has since resolved, she now feels residually mildly weak, she denied any chest pain during the event, she denies any recent illnesses or infections in recent days to weeks, she reports that she does not chronically take in much water but that she has not drank less than normal for her in recent days. Denies leg swelling or calf tenderness, no recent travel or immobilization, no headache. Related Data Home Medications ?Medication ?Instructions ?Recorded ?Confirmed dabigatran etexilate 150 mg 150 mg PO BID 11/24/2312/06 capsule (Pradaxa) ezetimibe 10 mg tablet (Zetia) 10 mg PO DAILY 11/24/23 02/19/25 fluticasone propionate 50 2 spray intranasal DAILY PRN 11/24/23 02/19/25 mcg/actuation nasal allergiies spray,suspension (Flonase Allergy Relief) sertraline 25 mg tablet 25 mg PO DAILY 11/24/2312/06 vit C 250 mg-E 90 mg-zinc 40 1 tab PO BID 11/24/2312/06 mg-copper 1 [id number] chew tablet (PreserVision AREDS-2) diltiazem HCl 240 mg capsule,24 240 mg PO DAILY 02/19/25 hr,extended release magnesium glycinate 100 mg (as 100 mg PO DAILY 5 02/19/25 glycinate) tablet Allergies Allergy/AdvReac Type Severity Reaction Status Date / Time apixaban Allergy ALGY-Rash Verified 02/09/24 14:24 atorvastatin Allergy ADR-Muscle Verified 11/24/23 09:12 Pain fexofenadine Allergy ALGY-Anaphy Verified 11/24/23 09:12 laxis Gadolinium-Containing Allergy ADR-Nausea Verified 11/24/23 09:12 Contrast Medi prednisolone Allergy ADR-Nausea Verified 02/09/24 14:24 simvastatin Allergy ADR-Muscle Verified 11/24/23 09:12 Pain Sulfa (Sulfonamide Allergy ADR-Nausea Verified 11/24/23 09:12 Antibiotics) PFSH ED 2 PFSH: Social History Smoking and tobacco/nicotine status: former use of tobacco/nicotine Quit status (tobacco/nicotine): has quit using Year quit tobacco: 2009 Former quit date comment: 1 ppd X 36 years Physical Exam 2 Narrative: EXAM NARRATIVE: Gen: A&Ox4, no acute distress, nontoxic appearing HEENT: Normocephalic, atraumatic, no scleral icterus, external ears normal, moist mucous membranes Neck: Supple, full range of motion, no observable masses Lungs: No Respiratory distress, Lungs clear to auscultation bilaterally no rales, rhonchi, wheezing CV: Regular rate and rhythm, no murmur, no pitting edema to lower extremities bilaterally Abdomen: Soft, nondistended, nontender to palpation MSK: No joint swelling, FROM all 4 extremities Skin: No rashes, petechiae, lesions. Normal color per patient. Neuro: Alert and oriented, no slurred speech, sensation and strength grossly intact all 4 extremities Psych: Appropriate for situation. Course 2 Reevaluation(s): Reevaluation #1: Patient monitored in the ER, no significant arrhythmia, currently feels well, workup unremarkable, recommend outpatient follow-up with cardiology, possible Holter monitor placement for intermittent arrhythmia, return precautions discussed prior to discharge Time: 10:23 Vital Signs: Vital signs: Vital Signs Temperature 98.1 F 02/19/25 08:50 Pulse Rate 77 02/19/25 08:50 Respiratory Rate 18 02/19/25 08:50 Blood Pressure 181/104 02/19/25 08:50 Pulse Oximetry 96 02/19/25 08:50 Oxygen Delivery Me thod Room Air 02/19/25 08:50 MDM - Arrhythmia/Palpitations Medical Decision Making 74-year-old female past medical history significant for paroxysmal atrial fibrillation on Pradaxa due to allergy to Eliquis, presenting to the emergency department with acute onset of lightheaded dizziness near syncope and palpitations this morning, previously healthy, no obvious inciting event other than chronically low fluid intake which has not grossly changed in recent days, currently with a benign exam and resolved palpitations, EKG in the ER without any evidence of acute arrhythmia, plan for hydration, labs, chest x-ray, monitor, reassess for disposition. Patient follows with a hardwood floor installation helper in [place] Lab Data Blood work showing no leukocytosis or anemia, normal electrolytes and creatinine, mild hyperglycemia 169, negative troponin, normal proBNP, TSH and free T4 normal 02/19/25 08:54 02/19/25 08:54 Radiology Impressions Chest X-Ray 02/19/25 09:09 IMPRESSION: No acute findings. Laboratory Results WBC 4.52 10^3/uL (3.29-11.43) 02/19/25 08:54 RBC 4.66 10^6/uL (3.85-5.65) 02/19/25 08:54 Hgb 15.10 g/dL (11.27-16.99) 02/19/25 08:54 Hct 44.8 % (36-47) 02/19/25 08:54 MCV 96.1 fl (85-98) 02/19/25 08:54 MCH 32.4 pg (27-33) 02/19/25 08:54 MCHC 33.7 g/dL (30-55) 02/19/25 08:54 RDW 11.8 % (12.1-15.1) L 02/19/25 08:54 Plt Count 181 10^3/cmm (157-399) 02/19/25 08:54 MPV 10.5 fL (7.4-10.4) H 02/19/25 08:54 Neut % (Auto) 61.3 % 02/19/25 08:54 Lymph % (Auto) 29.9 % 02/19/25 08:54 [place] % (Auto) 5.8 % 02/19/25 08:54 Eos % (Auto) 2.4 % 02/19/25 08:54 Baso % (Auto) 0.4 % 02/19/25 08:54 Neut # (Auto) 2.77 10^3/uL (1.8-7.7) 02/19/25 08:54 Lymph # (Auto) 1.4 10^3/uL (0.8-4.8) 02/19/25 08:54 [place] # (Auto) 0.3 10^3/uL (0.2-0.9) 02/19/25 08:54 Eos # (Auto) 0.1 10^3/uL (0.0-0.8) 02/19/25 08:54 Baso # (Auto) 0.0 10^3/uL (0.0-0.1) 02/19/25 08:54 Nucleated RBC % (auto) 0 % 02/19/25 08:54 Nucleated RBCs # 0.0 /100WBC 02/19/25 08:54 Sodium 139 mmol/L (136-145) 02/19/25 08:54 Potassium 4.4 mmol/L (3.5-5.1) 02/19/25 08:54 Chloride 102 mmol/L (98-107) 02/19/25 08:54 Carbon Dioxide 26 mmol/L (22-29) 02/19/25 08:54 Anion Gap 15.4 (5-19) 02/19/25 08:54 BUN 20 mg/dL (8-23) 02/19/25 08:54 Creatinine 0.5 mg/dL (0.5-0.9) 02/19/25 08:54 GFR Calculation Not Reportable 02/19/25 08:54 Glucose 169 mg/dL (65-115) H 02/19/25 08:54 Calculated Osmolality 295 mOsm/kg (285-295) 02/19/25 08:54 Calcium 9.6 mg/dL (8.5-10.5) 02/19/25 08:54 Magnesium 2.2 mg/dL (1.7-2.3) 02/19/25 08:54 Troponin T Baseline < 6 ng/L (0-10) 02/19/25 08:54 NT-Pro-B Natriuret Pep 147 pg/mL (0-125) H 02/19/25 08:54 TSH 2.33 uIU/mL (0.27-4.20) 02/19/25 08:54 Free T4 1.05 ng/dL (0.82-1.77) 02/19/25 08:54 All radiology interpretation(s) finalized by discharge ED provider radiology interpretation(s): Chest x-ray negative for consolidations or pulmonary edema EKG Data EKG 1: I personally reviewed and interpreted this EKG as follows: EKG interpretation date: 02/19/25 EKG interpretation time: 10:24 Interpretation: EKG at 8:45 AM showing sinus rhythm at 66 bpm, no STEMI, no ectopy, QTc 396 Other EKG comments: Chest X-Ray 02/19/25 09:09 IMPRESSION: No acute findings. Discharge Plan Discharge Patient Disposition: Home Clinical Impression: Near syncope Condition: Stable Prescriptions: No Action dabigatran etexilate [Pradaxa] 150 mg capsule 150 mg PO BID sertraline 25 mg tablet 25 mg PO DAILY ezetimibe [Zetia] 10 mg tablet 10 mg PO DAILY fluticasone propionate [Flonase Allergy Relief] 50 mcg/actuation spray,suspension 2 spray intranasal DAILY PRN (Reason: allergiies) Rx Instructions: administer into each nostril PreserVision AREDS-2 250-90-40-1 mg tablet,chewable 1 tab PO BID diltiazem HCl 240 mg capsule,extended release 24 hr 240 mg PO DAILY magnesium glycinate 100 mg Tablet 100 mg PO DAILY Discharge Orders: Discharge ED (Routine); Ordered 02/19/25 Ordered By: Luciano Peña Referrals: Lucita Lemons [Primary Care Provider] Patient Instructions: Patient Portal & Breanne Instructions, Near Syncope (ED) Activity Restrictions/Additional Instructions: You were seen for an episode this morning of palpitations and a sensation of almost passing out. At this time your workup in the emergency department appears reassuring and there is no evidence of acute arrhythmia at this time, I do recommend you follow-up with your hardwood floor installation helper in [place], I recommend you return to the ER if you develop persistent palpitations or episodes of fully passing out, chest pain, lightheadedness, severe weakness, or any other concerns while waiting to see your hardwood floor installation helper Print Language: Japanese Coding Level of Care Code ED Central Office Operator Supervisor for Erica Robert
--- NOTE | 2025-02-19 09:09 | XRR_ITS ---
PROCEDURE INFORMATION: Exam: XR Chest Exam date and time: 02/19/2025 9:28 AM Age: 74 years old Clinical indication: Other: Palpitations; Additional info: Heart palpitations; Near syncope; HX afib, mitral valve prolapse TECHNIQUE: Imaging protocol: Radiologic exam of the chest. Views: 1 view. COMPARISON: CT chest con [id number] 11/27/2023 2:24 PM FINDINGS: Lungs: Unremarkable. No consolidation. Pleural spaces: Unremarkable. No pleural effusion. No pneumothorax. Heart/Mediastinum: Unremarkable. No cardiomegaly. Bones/joints: Unremarkable. XR/XR chest 1V portable [id number] IMPRESSION: No acute findings.
--- NOTE | 2025-02-19 09:09 | ECG_ITS ---
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 Measurements Intervals [place] Rate: 66 P: 57 NM: 154 QRS: 38 QRSD: 78 T: 35 QT: 383 QTc: 402 Interpretive Statements SINUS RHYTHM SEPTAL MYOCARDIAL INFARCTION , OF INDETERMINATE AGE [40+ ms Q WAVE IN V1/V2] Compared to ECG 08/01/2023 04:01:05 Atrial fibrillation no longer present Myocardial infarct finding still present Electronically Signed On 02-19-2025 12:59:24 BOAT PULLER by Berna Phelps M.D. [email or web address]
[2025-02-19 09:18] LABS: Hematocrit 44.8 % (36-47); Hemoglobin 15.10 g/dL (11.27-16.99); Mean Corpuscular HGB Conc 33.7 g/dL (30-55); Mean Corpuscular Hemoglobin 32.4 pg (27-33); Mean Corpuscular Volume 96.1 fl (85-98); Nucleated Red Blood Cells % 0 %; Platelet Count 181 10^3/cmm (157-399); Red Blood Count 4.66 10^6/uL (3.85-5.65); White Blood Count 4.52 10^3/uL (3.29-11.43)
[2025-02-19 09:36] LABS: Troponin(5th) Baseline < 6 ng/L (0-10)
[2025-02-19 09:39] LABS: Potassium 4.4 mmol/L (3.5-5.1)
[2025-02-19 09:43] LABS: Anion Gap 15.4 (5-19); Blood Urea Nitrogen 20 mg/dL (8-23); Calcium 9.6 mg/dL (8.5-10.5); Carbon Dioxide 26 mmol/L (22-29); Chloride 102 mmol/L (98-107); Creatinine Clr Calc Pharmacy 63.8809; Free T4 Free Thyroxine 1.05 ng/dL (0.82-1.77); Glucose 169 mg/dL (65-115); Magnesium 2.2 mg/dL (1.7-2.3); NT Pro B Type Natriuretic Pept 147 pg/mL (0-125); Osmolality Calculated 295 mOsm/kg (285-295); Sodium 139 mmol/L (136-145); Thyroid Stimulating Hormone 2.33 uIU/mL (0.27-4.20)
== END 2025-02-19 10:45 | disposition home or self-care (01) ==
PROVIDERS: Emergency Provider Student in an Organized Health Care Education/Training Program; PCP Nurse Practitioner Family
DX: R55 Syncope and collapse (principal); Z87.891 Personal history of nicotine dependence
CPT/HCPCS: 71045; 80048; 83735; 83880; 84439; 84443; 84484; 85025; 93005; 99285